=== PATIENT | female | born 1950 | race Caucasian/White ===

== ENCOUNTER → 2016-12-18 | Day surgery (SDC) | payer MEDICARE, MEDICAID ==
[~2016-12-18] VITALS: Ht 154.9 cm; Wt 54.4 kg
[~2016-12-18] MED LIST: /ADVA50050; /TIOT18INH; ACET65TA; ACETAMINOPHEN 325 MG TAB PO PRN; ACETYLCHOLINE OPHTH SOLN 1% 2ML As Ordered ONE; ACETYLCHOLINE OPHTH SOLN 1% 2ML XX ONE; ADV500INH INH; ALBU17IN INH; ALBU83IN; ATARAX; ATRO0.06; BSS with VANC/TOB/EPI for EYE CASES IR ONE; CEFUROXIME 1MG/0.1ML INTRACAMERAL INJ As Ordered ONE; CEFUROXIME 1MG/0.1ML INTRACAMERAL INJ ICAM ONE; CYCLOPENTOLATE 2% OPHTH SOLN As Ordered ONE; CYCLOPENTOLATE 2% OPHTH SOLN OD ONE; DIOV160T5; DULO30CA PO; HEALON DUET (HEALON 10MG/ML 0.55ML & HEALON ENDOCOAT 30MG/ML 0.85ML) XX ONE; HYDR25TA8; IRBE300T10 PO; LIDOCAINE 1% SDV 5 ML VIAL As Ordered ONE; LIDOCAINE 1% SDV 5 ML VIAL XX ONE; LIDOCAINE 4% INJ 5 ML AMP OU ONE; MIDAZOLAM INJ 2 MG/2 ML VIAL (J2250) As Ordered ONE; OFLOSO OD; OFLOXACIN 0.3 % (OCUFLOX) OPTH SOL 5ML As Ordered ONE; OFLOXACIN 0.3 % (OCUFLOX) OPTH SOL 5ML OD ONE; OMEP40CA2 PO; PHENYLEPHRINE 2.5% OPHTH SOL 2ML As Ordered ONE; PHENYLEPHRINE 2.5% OPHTH SOL 2ML OD ONE; POVIDONE-IODINE 5% OPHTH PREP SOL 30ML As Ordered ONE; PRED10TA PO; PRED1SUS OD; PRED20TA; PROPARACAINE 0.5% OPHTH SOL 15ML OD PRN; RANI150T PO; TIOT18INH INH; TOBRADEX OPHTH OINT 3.5 GM As Ordered ONE; TRAM50TA2; TRIMETHOBENZAMIDE 300 MG CAP PO PRN; TROPICAMIDE 1% OPHTH SOLN 2 ML As Ordered ONE; TROPICAMIDE 1% OPHTH SOLN 2 ML OD ONE; TYLE325T5 PO; VERA1TAB10 PO; fentaNYL 100 MCG/2 ML INJECTION (J3010) As Ordered ONE
[2016-12-18 10:45] VITALS: BP 159/86
--- NOTE | 2016-12-18 11:33 | RO ---
DATE OF PROCEDURE: 12/18/2016 PREPROCEDURE DIAGNOSIS: Age-related nuclear cataract and posterior subcapsular cataract, right eye. POSTPROCEDURE DIAGNOSIS: Age-related nuclear cataract and posterior subcapsular cataract, right eye. PROCEDURE: Phacoemulsification with anterior chamber intraocular lens. SURGEON: Viji Kelsey MD BOOKKEEPING MACHINE MECHANIC: ANESTHESIA: Topical with sedation. DESCRIPTION OF PROCEDURE: The patient was prepped and draped in the usual fashion. A lid speculum was placed between the lids. The eye was fixated. A stab incision was made in anterior chamber. 1% non-preservative Lidocaine was instilled; then viscoelastic was instilled. The eye was refixated and a 2.5 mm keratome was used to make a clear corneal temporal limbal incision. Capsulorrhexis then begun with 30-gauge bent needle and carried out in circular fashion. Capsulorrhexis lens was hydrodissected. The phacoemulsification was introduced into the eye and as soon as phacoemulsification was begun, the patient suffered approximately a 300 degree zonular dehiscence and the lens hinged and sunk down. An anterior vitrectomy was performed. Viscoelastic was placed underneath the cataract and most of the cataract was removed with the phacoemulsification unit. There was a small amount of nuclear fragment retained that will be sent retina to remove at a later date. The wound was enlarged and a lens guide was placed across the anterior chamber after Miochol was instilled. The pupil rounded nicely. An anterior chamber lens was introduced through the incision and the lens guide removed. The placed into the sulcus. The pupil stayed round during this procedure so the lens was in excellent position. The wound was closed using three #10-0 Nylon sutures. Balanced salt and cefuroxime were instilled. The patient tolerated the procedure well and went to recovery room in stable condition. A patch and shield was also placed.
== END | disposition home or self-care (01) ==
LOC: M SDC 07:42
PROVIDERS: ATTEND Ophthalmology
DX: H25.041 Posterior subcapsular polar age-related cataract, right eye (principal); I10 Essential (primary) hypertension; K21.9 Gastro-esophageal reflux disease without esophagitis; M51.37 Other intervertebral disc degeneration, lumbosacral region; M48.05 Spinal stenosis, thoracolumbar region; R29.898 Other symptoms and signs involving the musculoskeletal system; G89.29 Other chronic pain; M81.0 Age-related osteoporosis without current pathological fracture; E55.9 Vitamin D deficiency, unspecified; R41.81 Age-related cognitive decline; G47.9 Sleep disorder, unspecified; F41.9 Anxiety disorder, unspecified; F32.9 Major depressive disorder, single episode, unspecified; R51 Headache; Z90.710 Acquired absence of both cervix and uterus; R06.2 Wheezing; J20.9 Acute bronchitis, unspecified; J44.1 Chronic obstructive pulmonary disease with (acute) exacerbation; R06.02 Shortness of breath; J01.90 Acute sinusitis, unspecified; Z88.1 Allergy status to other antibiotic agents; Z88.6 Allergy status to analgesic agent; Z88.8 Allergy status to other drugs, medicaments and biological substances; Z79.899 Other long term (current) drug therapy
CPT/HCPCS: 66984; J2250; J3010; V2630

== ENCOUNTER → 2017-03-05 | Day surgery (SDC) | payer MEDICARE, MEDICAID ==
[~2017-03-05] VITALS: Ht 154.9 cm; Wt 56.2 kg
[~2017-03-05] MED LIST changes: -ACETAMINOPHEN 325 MG TAB PO PRN; -ACETYLCHOLINE OPHTH SOLN 1% 2ML XX ONE; -BSS with VANC/TOB/EPI for EYE CASES IR ONE; -CEFUROXIME 1MG/0.1ML INTRACAMERAL INJ ICAM ONE; -CYCLOPENTOLATE 2% OPHTH SOLN As Ordered ONE; +HEALON DUET (HEALON 10MG/ML 0.55ML & HEALON ENDOCOAT 30MG/ML 0.85ML) As Ordered ONE; -HEALON DUET (HEALON 10MG/ML 0.55ML & HEALON ENDOCOAT 30MG/ML 0.85ML) XX ONE; -LIDOCAINE 1% SDV 5 ML VIAL XX ONE; -OFLOXACIN 0.3 % (OCUFLOX) OPTH SOL 5ML As Ordered ONE; -PHENYLEPHRINE 2.5% OPHTH SOL 2ML As Ordered ONE; -PROPARACAINE 0.5% OPHTH SOL 15ML OD PRN; -TRIMETHOBENZAMIDE 300 MG CAP PO PRN; -TROPICAMIDE 1% OPHTH SOLN 2 ML As Ordered ONE
--- NOTE | 2017-03-05 12:29 | RO ---
DATE OF PROCEDURE: 03/05/2017 PREPROCEDURE DIAGNOSIS: Malposition anterior chamber intraocular lens right eye. POSTPROCEDURE DIAGNOSIS: Malposition anterior chamber intraocular lens right eye. PROCEDURE: Reposition of anterior chamber intraocular lens right eye. SURGEON: Viji Kelsey MD INSURANCE LOSS CONTROL SURVEYOR: ANESTHESIA: Topical with sedation. DESCRIPTION OF PROCEDURE: The patient was brought to the OR, prepped and draped in the usual sterile fashion. A lid speculum was placed between the lids. The eye was fixated. A stab incision was made in this eye, and 1% non-preserved lidocaine was instilled. The three corneal sutures are removed that were previously there and a 2.4 mm keratome was used to make a clear corneal temporal limbal incision. The manipulation hook was used to reposition the nasal haptic and lens was in excellent position. Miochol was instilled to constrict the pupil. The wound was hydrated and then tissue adhesive was used to close the wound. The wound was water tight. TobraDex ointment was applied and patch placed. The patient tolerated the procedure well and went to the recovery room in stable condition.
[2017-03-05 13:10] VITALS: BP 167/86
== END | disposition home or self-care (01) ==
LOC: M SDC 10:19
PROVIDERS: ATTEND Ophthalmology
DX: T85.22XA Displacement of intraocular lens, initial encounter (principal); I10 Essential (primary) hypertension; K21.9 Gastro-esophageal reflux disease without esophagitis; R23.3 Spontaneous ecchymoses; M15.0 Primary generalized (osteo)arthritis; M54.2 Cervicalgia; F41.9 Anxiety disorder, unspecified; F32.9 Major depressive disorder, single episode, unspecified; R51 Headache; J44.1 Chronic obstructive pulmonary disease with (acute) exacerbation; R06.83 Snoring; G47.33 Obstructive sleep apnea (adult) (pediatric); M51.37 Other intervertebral disc degeneration, lumbosacral region; M48.06 Spinal stenosis, lumbar region; E55.9 Vitamin D deficiency, unspecified; H25.23 Age-related cataract, morgagnian type, bilateral; G89.29 Other chronic pain; Z88.1 Allergy status to other antibiotic agents; Z88.2 Allergy status to sulfonamides; Z88.6 Allergy status to analgesic agent; Z79.899 Other long term (current) drug therapy; Z90.710 Acquired absence of both cervix and uterus
CPT/HCPCS: 66825; J2250; J3010

== ENCOUNTER 2017-04-10 10:25 | Inpatient (IN) | payer MEDICARE, MEDICAID ==
[2017-04-10] VITALS (31 sets, daily range): BP systolic 71–108; BP diastolic 51–62
[~2017-04-10] VITALS: Ht 157.5 cm; Wt 66.1 kg
[~2017-04-10 10:25] MED LIST changes: -ACETYLCHOLINE OPHTH SOLN 1% 2ML As Ordered ONE; -CEFUROXIME 1MG/0.1ML INTRACAMERAL INJ As Ordered ONE; -CYCLOPENTOLATE 2% OPHTH SOLN OD ONE; +DULoxetine 30 MG CAP (CYMBALTA) PO SCH; -HEALON DUET (HEALON 10MG/ML 0.55ML & HEALON ENDOCOAT 30MG/ML 0.85ML) As Ordered ONE; -LIDOCAINE 1% SDV 5 ML VIAL As Ordered ONE; -LIDOCAINE 4% INJ 5 ML AMP OU ONE; -MIDAZOLAM INJ 2 MG/2 ML VIAL (J2250) As Ordered ONE; -OFLOXACIN 0.3 % (OCUFLOX) OPTH SOL 5ML OD ONE; +OMEPRAZOLE 20 MG CAP PO SCH; -PHENYLEPHRINE 2.5% OPHTH SOL 2ML OD ONE; -POVIDONE-IODINE 5% OPHTH PREP SOL 30ML As Ordered ONE; -TOBRADEX OPHTH OINT 3.5 GM As Ordered ONE; -TROPICAMIDE 1% OPHTH SOLN 2 ML OD ONE; -fentaNYL 100 MCG/2 ML INJECTION (J3010) As Ordered ONE; +predniSONE 10 MG TAB PO SCH
[2017-04-10] MEDS ORDERED: VITA400T15 PO (10:45)
[2017-04-10] MEDS ORDERED: NS 1,000 ML IV ONE ×3 (10:45→14:15)
--- NOTE | 2017-04-10 11:05 | REP ---
AP PORTABLE CHEST: 04/10/2017 COMPARISON: 02/05/2016, 07/30/2015. CLINICAL HISTORY: Dyspnea and cough. FINDINGS: This portable chest at 10:49 AM shows the lungs hyperinflated, similar to previous studies consistent with COPD. There is apical pleural scarring bilaterally. Some basilar and mid lung zone fibrosis, bullous emphysematous changes mid and upper lung zones noted. There is no effusion or definite acute infiltrate. Heart is not grossly enlarged. There is pulmonary hypertension, likely on the basis of COPD. There is a tortuous ectatic aorta without change. Airway intact. No definite aortic aneurysm. Bones grossly intact. There is no free air under the diaphragm. IMPRESSION: 1. COPD with bullous emphysematous changes, pulmonary artery hypertension, apical pleuroparenchymal scarring, basilar fibrosis with hyperinflation and no acute infiltrate. 2. Tortuous ectatic aorta with some calcifications at the arch but no gross aneurysm or change. 3. No cardiomegaly, edema or effusion. Signed by Vinny Block MD 04/10/2017 02:15 P
[2017-04-10] MEDS ORDERED: PANTOPRAZOLE 40MG INJ (PROTONIX) (C9113) IV ONE (11:15)
[2017-04-10 11:19] LABS: INR 1.15
[2017-04-10 11:29] LABS: ALBUMIN 2.4 GM/DL (3.2-5.2); ALBUMIN/GLOBULIN RATIO 0.69 (1.00-1.93); BILIRUBIN,DIRECT 0.2 MG/DL (0.0-0.2); BILIRUBIN,TOTAL 0.6 MG/DL (0.2-1.0); CALCIUM LEVEL 8.2 MG/DL (8.8-10.2); CREATININE FOR GFR 2.5 MG/DL (0.55-1.02); GLOMERULAR FILTRATION RATE 20.4 (>45); POTASSIUM SERUM 3.9 MEQ/L (3.5-5.1); TOTAL PROTEIN 5.9 GM/DL (6.4-8.2)
[2017-04-10 11:37] LABS: ABG BASE EXCESS -4.8 (-2.0-2.0); ABG HCO3 20.3 MEQ/L (22.0-26.0); ABG PARTIAL PRESSURE CO2 37.4 mmHg (35.0-45.0); ABG PARTIAL PRESSURE O2 175.5 mmHg (75.0-100.0); ABG STANDARD HCO3 20.6 MEQ/L (22.0-26.0); ABG TOTAL CO2 21.4 MEQ/L (23.0-31.0); ABG pH (ARTERIAL) 7.352 UNITS (7.350-7.450)
[2017-04-10 11:41] LABS: MEAN CORPUSCULAR HEMOGLOBIN 30.2 pg (27.0-33.0); MEAN CORPUSCULAR VOLUME 91.6 fl (80.0-96.0); PLATELET COUNT, AUTOMATED 208 k/mm3 (150-450); RED CELL DISTRIBUTION WIDTH 12.6 % (11.5-14.5); WHITE BLOOD COUNT 17.2 K/mm3 (4.0-10.0)
[2017-04-10] MEDS ORDERED: DRIS50002 PO (11:44)
[2017-04-10] MEDS ORDERED: TOBR3OPD OD (11:44)
[2017-04-10] MEDS ORDERED: VERA120T6 PO (11:44)
[2017-04-10] MEDS ORDERED: PROA1AER INH (11:44)
[2017-04-10] MEDS ORDERED: KETO5OPD OD (11:44)
[2017-04-10] MEDS ORDERED: SUCRALFATE 1 GM TAB PO ONE (11:45)
[2017-04-10] MEDS ORDERED: FOSA70TA PO (11:48)
[2017-04-10] MEDS ORDERED: PIPERACILLIN/TAZOBACTAM SOD 2.25 GM in D5W MINI-BAG PLUS 50 ML IV ONE (12:15)
[2017-04-10 12:17] LABS: BANDS 7 % (< 11)
--- NOTE | 2017-04-10 12:42 | REP ---
Clinical: Abdominal pain. Findings: Moderate left-sided perinephric and periureteral stranding along with edematous enlargement of the kidney and mild hydronephrosis and proximal hydroureter is secondary to obstruction of the proximal ureter by a 8 mm calculus. The right kidney demonstrates mild chronic perinephric stranding without hydronephrosis or nephrolithiasis. Bladder demonstrates small amount of nondependent gas likely related to prior Patterson catheterization. Gallbladder is significantly distended with gallstones and no pericholecystic fluid or wall thickening to suggest acute cholecystitis. Peripancreatic stranding may be secondary to the above-mentioned acute obstructive uropathy however associated pancreatitis cannot definitively be excluded. Bilateral adrenal glands are normal. The enteric system is without obstruction or acute inflammatory process. Colonic diverticula noted without acute diverticulitis. Normal terminal ileum identified in the right lower quadrant. No significant ascites. No free air. No obvious adenopathy. Atherosclerotic changes to the vasculature noted without aneurysm. Musculoskeletal structures demonstrate degenerative changes. Lung bases demonstrate chronic bronchiectasis, mild/moderate fibrosis and interstitial changes. Impression: 1. Acute left-sided obstructive uropathy with a mm calculus obstructing the proximal left ureter. Inflammatory stranding involves much of the left upper retroperitoneal region including the pancreas and pancreatitis cannot be excluded. 2. Distended gallbladder with multiple gallstones but no CT evidence for acute cholecystitis. 3. Colonic diverticulosis without acute diverticulitis. 4. Lung bases demonstrate bronchiectasis with moderate fibrosis and chronic interstitial changes. Signed by Sandip Garza MD 04/10/2017 12:33 P
--- NOTE | 2017-04-10 12:54 | REP ---
CT of the chest: Studies requested without IV, at rest. Comparison 06/19/2011. There is no pneumothorax, hemothorax or pulmonary contusion. There is no mediastinal hematoma or mass. There is chronic pleuroparenchymal scarring in the lung apices, unchanged. There is a 6 mm nodule left upper lobe on image 27, unchanged. There is a 7 ml nodule in the superior segment of the left lower lobe on image 37. This measured 10 mm previously. There is a 6 mm lung nodule in the superior segment left lower lobe on image 46. This is unchanged. There is no mediastinal adenopathy. No axillary adenopathy. In the absence of IV contrast study is insensitive for hilar adenopathy. Impression: There are stable lung nodules as described. There are no infiltrates, effusions or masses. No pneumothorax or hemothorax. No adenopathy or mass. There is grade 1 compression deformity of the approximate T9 vertebral body. Signed by Eddie London MD 04/10/2017 12:45 P
[2017-04-10] MEDS ORDERED: MORPHINE 4 MG/ML 1ML SYRINGE IV ONE (13:00)
[2017-04-10] MEDS ORDERED: ONDANSETRON 4MG/2ML VIAL (J2405) IV ONE (13:00)
[2017-04-10 14:59] LABS: MEAN CORPUSCULAR HEMOGLOBIN 29.8 pg (27.0-33.0); MEAN CORPUSCULAR HGB CONC 32.6 g/dl (32.0-36.5); MEAN CORPUSCULAR VOLUME 91.3 fl (80.0-96.0); RED CELL DISTRIBUTION WIDTH 12.7 % (11.5-14.5); WHITE BLOOD COUNT 17.2 K/mm3 (4.0-10.0)
[2017-04-10] MEDS ORDERED: NS 1,000 ML IV SCH (15:03)
[2017-04-10] MEDS ORDERED: ONDANSETRON 4MG/2ML VIAL (J2405) IV PRN (15:15)
[2017-04-10] MEDS ORDERED: ACETAMINOPHEN TAB 650MG DOSE (2X325MG) PO PRN (15:15)
[2017-04-10] MEDS ORDERED: ALBUTEROL 90 MCG/ACT 8GM HFA INHALER INH PRN (15:15)
[2017-04-10] MEDS ORDERED: BISACODYL 5 MG TAB PO PRN (15:15)
[2017-04-10] MEDS ORDERED: PERCOCET 5MG/325MG TAB PO PRN (15:15)
[2017-04-10] MEDS ORDERED: SODIUM CHLORIDE 0.9% 1000 ML IV ONE (15:30)
[2017-04-10] MEDS: LEVALBUTEROL 1.25 MG/0.5 ML CONCENTRATE NEB INH SCH ×2 (15:53→19:29)
[2017-04-10] MEDS: IPRATROPIUM 0.02% SOLN 0.5MG/2.5 ML NEB NEB SCH ×2 (16:00→19:29)
[2017-04-10] MEDS ORDERED: LevoFLOXacin IV 500 MG in APPROPRIATE DILUENT 1 EA IV ONE (17:00)
[2017-04-10] MEDS: NOREPINEPHRINE BITARTRATE 8 MG in D5W 500 ML IV SCH (17:11)
[2017-04-10] MEDS ORDERED: SODIUM CHLORIDE 0.9% INJ 10 ML SYR IV PRN (17:15)
[2017-04-10] MEDS ORDERED: SLF 3 ML SYR IV PRN (17:15)
[2017-04-10] MEDS ORDERED: ALBUTEROL SULFATE 2.5 MG/0.5 ML INH NEB SOLN NEB PRN (17:30)
[2017-04-10] MEDS ORDERED: ACETAMINOPHEN 650 MG SUPP PR PRN (17:30)
--- NOTE | 2017-04-10 17:36 | REP ---
Portable chest, 05:11 p.m., 04/10/2017, post central line placement: Comparisons are the portable chest performed earlier today and chest CT performed earlier today and PA and lateral chest of 02/05/2016. There is a left subclavian central venous catheter with the tip in the superior vena cava in satisfactory location. There is no pneumothorax or hemothorax. The lung coombs are clear. Cardiac size is normal. Impression: No acute cardiopulmonary findings. Signed by Eddie London MD 04/10/2017 05:27 P
[2017-04-10] MEDS: MORPHINE 2 MG/ML 1ML SYRINGE IV PRN ×2 (18:32→20:26)
[2017-04-10] MEDS: HYDROCORTISONE 100 MG/2 ML VIAL (J1720) IV SCH (18:32)
[2017-04-10] MEDS: KETOROLAC 0.5% OPHTH SOLN OD SCH ×2 (18:50→22:16)
[2017-04-10] MEDS: TOBRAMYCIN 0.3% OPHTH SOLN 5 ML OD SCH ×2 (18:50→22:16)
[2017-04-10] MEDS: IPRATROPIUM 0.5MG/ALBUTEROL 2.5MG INH SOL UD 3ML (DUONEB)(J7620) NEB SCH (20:00)
[2017-04-10] MEDS: PIPERACILLIN/TAZOBACTAM SOD 3.375 GM in D5W MINI-BAG PLUS 50 ML IV SCH (20:24)
[2017-04-10] MEDS ORDERED: FAMOTIDINE 20 MG TAB PO SCH (21:00)
[2017-04-10 21:05] LABS: ALBUMIN/GLOBULIN RATIO 0.87 (1.00-1.93); BILIRUBIN,TOTAL 0.8 MG/DL (0.2-1.0); CALCIUM LEVEL 6.3 MG/DL (8.8-10.2); CREATININE FOR GFR 2.76 MG/DL (0.55-1.02); GLOMERULAR FILTRATION RATE 18.2 (>45); POTASSIUM SERUM 5.1 MEQ/L (3.5-5.1); TOTAL PROTEIN 4.3 GM/DL (6.4-8.2)
[2017-04-10] MEDS ORDERED: MORPHINE 4 MG/ML 1ML SYRINGE IV PRN (21:15)
[2017-04-10] MEDS: SODIUM CHLORIDE 0.9% INJ 10 ML SYR IV SCH (22:17)
[2017-04-10] MEDS: CHLORHEXIDINE GLUCONATE 0.12 % 15ML UDC (PERIDEX ORAL RINSE) MT SCH (22:17)
[2017-04-10] MEDS: SLF 3 ML SYR IV SCH (22:18)
[2017-04-10] MEDS: NS 1,000 ML IV SCH (22:18)
--- NOTE | 2017-04-10 22:30 | HPE ---
DATE OF ADMISSION: 04/10/2017 PRIMARY CARE PHYSICIAN: Dr. Gurrola PAINT ROLLER ASSEMBLER: Dr. Frey NEWS REPORTER: Dr. Kelsey CODE STATUS: Full code. CHIEF COMPLAINT: Bilateral lower abdominal pain, as well as lower back pain. HISTORY OF PRESENT ILLNESS: Ms. Islas is a 66-year-old female with multiple past medical history who presented to emergency room (ER) due to experiencing severe back and abdominal pain bilaterally. Patient expressed that the pain started yesterday. At first it was 4/5 and it started in the morning; however, it has gradually increased. Patient also expressed that yesterday after pain started, she became nauseated, and she had one episode of vomiting; however, patient denies seeing blood in her vomit, mostly undigested food. Patient expressed that she did not have anything to eat for lunch, and for dinner patient had a sandwich. Patient expressed that she felt warm; however, patient did not take her temperature and does not know if she had a fever; however, patient has chills. Patient also experienced night sweats, and this morning patient woke up with severe abdominal and back pain. Patient had another episode of vomiting. Patient had one episode of bowel movement yesterday and one episode of bowel movement today; however, patient denies hematochezia or melena. Patient expressed that she was urinating yesterday and today without dysuria or hematuria, and she did not notice any increased frequency of her urination. Patient expressed that she tries to keep herself hydrated; however, she was more nauseated today compared to yesterday. Patient denies loss of consciousness; however, patient had lightheadedness, dizziness, and headache today. Patient denies seizure-type activity. Patient is sexually active; however, her last sexual activity was 2 weeks ago. ALLERGIES: 1. ERYTHROMYCIN. 2. IBUPROFEN. 3. LISINOPRIL. 4. NONSTEROIDAL ANTI-INFLAMMATORY DRUGS (NSAIDS). 5. PSEUDOEPHEDRINE. 6. SULFA ANTIBIOTICS. PAST MEDICAL HISTORY: 1. Emphysema. 2. Arthritis. 3. Chronic obstructive pulmonary disease (COPD); however, patient does not remember how many liters of oxygen she is on; however, she uses oxygen 24 hours a day. 4. Hypertension. 5. Migraine headaches. PAST SURGICAL HISTORY: 1. Partial hysterectomy. 2. Dilatation and curettage (D and C). 3. section. 4. Appendectomy. 5 Hemorrhoid banding and removal. HOME MEDICATIONS: - Tylenol 65 mg by mouth every 4 hours as needed pain - albuterol sulfate/ProAir HFA two puff inhalation every 4 hours as needed - Fosamax 70 mg by mouth every week on Mondays - Cymbalta 30 mg by mouth daily - irbesartan 300 mg by mouth daily - ketorolac one drop right eye four times a day - omeprazole 40 mg by mouth daily - prednisone 1 mg by mouth daily - ranitidine one tablet by mouth twice a day - Advair Diskus one puff inhaled twice a day - Spiriva HandiHaler one capsule inhaled daily - tobramycin one drop right eye four times a day - verapamil 120 mg by mouth daily - Drisdol 50,000 units by mouth monthly SOCIAL HISTORY: Patient lives alone; however, patient's daughter (Rosina), phone number , is visiting her. Patient has three daughters who are healthy. Patient has not drank for the past 30 years; however, before that patient was drinking occasionally. Patient stopped smoking 14 years ago; however , before that patient started smoking at age 14, about a pack a day. Patient denies illicit drug use. Patient has not traveled outside of the [place]. Patient does not have any pets. FAMILY HISTORY: Patient has two brothers. One brother due to heart attack. Patient has one sister who due to heart attack. Patient's father due to old age. Patient's mother due to emphysema. She was a smoker. REVIEW OF SYSTEMS: GENERAL: Patient is not sure if she has fever; however, patient felt warm. Patient had chills and night sweats. Patient denies weight loss. HEENT: Patient denies acute vision or hearing changes. Patient denies problem with chewing food or sinusitis. NECK: Patient denies loss of range of motion of her neck. HEART: Patient denies palpitations, racing or skipping heartbeat or chest pain. LUNGS: Patient expressed that she has chronic cough with no production of sputum , shortness of breath, and uses oxygen; however, patient does not remember how many liters of oxygen she is on. Patient is also using breathing treatment. ABDOMEN: Since yesterday, patient has abdominal pain. Today her pain has increased to 10/10, mostly in the lower abdominal quadrants bilaterally. Patient has been experiencing nausea and two episodes of vomiting, one yesterday, one today; however, patient denies emesis, hemoptysis, melena, or hematochezia. Patient denies diarrhea or constipation. NEUROLOGIC: Patient denies history of transient ischemic attack (TIA), cerebrovascular accident (CVA), or seizure-type activities. PHYSICAL EXAMINATION: Pulse 136, respiratory rate 24, blood pressure 128/81, pulse oximetry 98 on 4 liters nasal cannula. GENERAL APPEARANCE: Patient was lying in bed in no acute distress. Patient was awake, alert, and oriented to time, place, and person. HEENT: Normocephalic, atraumatic. Pupils are equal and reactive to light. Oral mucosa is moist. NECK: Soft, supple. No lymphadenopathy. No thyromegaly. No jugular venous distention (JVD). HEART: Tachycardic. Normal S1, S2. ABDOMEN: Soft, tender to palpation mostly on the lower abdominal quadrants. No guarding. Positive bowel sounds in all quadrants. BACK: Patient has tenderness to palpation on lower back, left more than right. LUNGS: Patient has wheezing both with inhale and exhale as well as scattered rhonchi at the base of the lungs. NEUROLOGIC: Cranial nerves II-XII were intact. No focal deficiencies. EXTREMITIES: No lower extremity edema. +2 pulses in both upper and lower extremities. Patient has decreased range of motion in lower extremities. LABORATORY DATA: White blood cells 17.2, red blood cells 4.4, hemoglobin 13.3, hematocrit 40.3, MCV 91.6, MCH 30.2, MCHC 33, RDW 12.6, platelet count 208, neutrophil percentage 78, band neutrophils 7, leukocytes 6, monocytes 8, atypical lymphocytes 1, platelet estimate normal, red blood cell morphology normal. Sodium 134, potassium 3.9, chloride 97, carbon dioxide 22, anion gap 15, BUN 19, creatinine 2.5, glomerular filtration rate 20.4, fasting glucose 89, calcium 8.2 , total bilirubin 0.6, direct bilirubin 0.2, AST 56, ALT 40, alkaline phosphatase 141. Total creatine kinase 146, CK-MB 1.5, CK-MB relative index 1.02, troponin I 0.2 . BNP 531. Total protein 5.9, albumin 2.4. Lipase 64. TSH 6.28. Lactic acid 7.2. IMAGING STUDIES: Chest x-ray which indicated COPD with bullous emphysematous changes, pulmonary artery hypertension, apical pleuroparenchymal scarring, basilar fibrosis with hyperinflation and no acute infiltrate. Tortuous ectatic aorta with some calcifications at the arch but no gross aneurysm or change. No cardiomegaly, edema or effusion. Chest CT which shows stable lung nodules. There are no infiltrates, effusions or masses. No pneumothorax or hemothorax. No adenopathy or mass. There is a grade 1 compression deformity of the approximate T9 vertebral body. CT of abdomen and pelvis without contrast, which indicated acute left-sided obstructive uropathy with an 8 mm calculus obstructing the proximal left ureter. Inflammatory stranding involving much of the left upper retroperitoneal region, including the pancreas and pancreatitis cannot be excluded. Distended gallbladder with multiple gallstones but no CT evidence for acute cholecystitis. Colonic diverticulosis without acute diverticulitis. Lung bases demonstrate bronchiectasis with moderate fibrosis and chronic interstitial changes. ASSESSMENT AND PLAN: 1. Sepsis, qSOFA indicating patient has a high risk for sepsis. We have ordered blood cultures as well as urine culture and results are pending at this time. Patient has received 3 liters of normal saline bolus. We will administer another liter of NS bolus If we cannot control the blood pressure, patient may be required to have central line and use pressors. We will continue to monitor patient for any abnormal symptoms. 2. Obstructive uropathy. CT of abdomen and pelvis without contrast, which was done at the emergency room (ER), indicated that patient has obstruction of the proximal ureter by the [address] Melara has been consulted. At this moment, we will make the patient nothing by mouth. Patient is on intravenous (IV ) fluid, however patient is a stable at this time for procedure due to her blood pressure secondary to sepsis. 3. Chronic obstructive pulmonary disease (COPD). We will continue on breathing treatment, and we will continue patient on the home dosage of prednisone with oxygen saturation of 88-92%. 4. Hypertension. This is a chronic issue; however, at this time, due to sepsis , patient has hypotension. Patient is on blood pressure medications at home, including verapamil 120 mg by mouth daily and irbesartan; however, we will hold these medications at this time. 5. Acute kidney injury. This is possibly caused by prerenal azotemia (sepsis) versus post azotemia secondary to obstructive nephrolithiasis. At this point patient is IV fluid. Patient also is on Zosyn. Patient's urine culture is pending at this time. We will continue to monitor patient for any abnormal symptoms. 6. Migraine headache. Patient is stable at this time. 7. Gastroesophageal reflux disease (GERD). Patient is on Protonix. Also patient is on Pepcid 20 mg twice a day by mouth. 8. Arthritis and chronic pain. Patient is on Cymbalta 30 mg by mouth daily. 9. Deep vein thrombosis (DVT) prophylaxis. Due to the procedure, I have started patient on thromboembolic deterrents (TEDs) and sequentials. My preceptor for this patient encounter was Dr. Jen Andrade. The preceptor was physically present in the building during the encounter and was fully available as needed. All aspects of the patient interview, examination, medical decision making process, and medical care plan development were reviewed and approved by the preceptor. The preceptor is aware and concurs with the plan as stated in the body of this note and will attest to such by his/her co-signature. edited: 04/10/2017 [id number] kb MTDD
[2017-04-11] VITALS (78 sets, daily range): BP systolic 58–149; BP diastolic 49–93; O2SAT 96
[2017-04-11] MEDS: ADVAIR DISKUS 500/50 INH PWD INH SCH ×2 (01:03→08:21)
[2017-04-11] MEDS: HYDROCORTISONE 100 MG/2 ML VIAL (J1720) IV SCH ×3 (01:38→17:45)
[2017-04-11] MEDS: IPRATROPIUM 0.5MG/ALBUTEROL 2.5MG INH SOL UD 3ML (DUONEB)(J7620) NEB SCH ×4 (02:00→20:02)
[2017-04-11] MEDS: LEVALBUTEROL 1.25 MG/0.5 ML CONCENTRATE NEB INH SCH ×3 (02:00→14:00)
[2017-04-11] MEDS: NOREPINEPHRINE BITARTRATE 8 MG in D5W 500 ML IV SCH ×3 (03:51→23:26)
[2017-04-11] MEDS: PIPERACILLIN/TAZOBACTAM SOD 3.375 GM in D5W MINI-BAG PLUS 50 ML IV SCH ×3 (05:54→21:31)
[2017-04-11] MEDS: SODIUM CHLORIDE 0.9% INJ 10 ML SYR IV SCH ×3 (05:55→21:32)
[2017-04-11] MEDS: SLF 3 ML SYR IV SCH ×3 (05:55→21:32)
[2017-04-11 06:22] LABS: MEAN CORPUSCULAR HEMOGLOBIN 29.7 pg (27.0-33.0); MEAN CORPUSCULAR VOLUME 95.9 fl (80.0-96.0); PLATELET COUNT, AUTOMATED 110 k/mm3 (150-450); WHITE BLOOD COUNT 17.6 K/mm3 (4.0-10.0)
--- NOTE | 2017-04-11 06:31 | RO ---
DATE OF PROCEDURE: 04/10/2017 PREPROCEDURE DIAGNOSES: Hypotension. Need for vascular access and pressors. POSTPROCEDURE DIAGNOSES: Hypotension. Need for vascular access and pressors. PROCEDURE: Insertion of left subclavian central line. SURGEON: Dr. Paulino Pritchett. FAMILY MEDICINE CHAIR: ANESTHESIA: ESTIMATED BLOOD LOSS: PROCEDURE: Patient's left infraclavicular fossa was prepped and draped in the usual sterile fashion. It was infiltrated with 1% Xylocaine and the subclavian vein was found on the second pass. Wire was placed without difficulty with production of PVCs. Tract was dilated and a triple lumen catheter was placed by Seldinger technique. Ports were aspirated and flushed and the catheter was secured to the chest wall with two #3-0 silk sutures. Patient tolerated the procedure well and chest x-ray is pending.
[2017-04-11 06:49] LABS: ALBUMIN 1.9 GM/DL (3.2-5.2); ALBUMIN/GLOBULIN RATIO 0.76 (1.00-1.93); CREATININE FOR GFR 3.26 MG/DL (0.55-1.02); MAGNESIUM LEVEL 1.6 MG/DL (1.8-2.4); TOTAL PROTEIN 4.4 GM/DL (6.4-8.2)
[2017-04-11 06:55] LABS: POTASSIUM SERUM 5.2 MEQ/L (3.5-5.1)
[2017-04-11 07:06] LABS: BANDS 11 % (< 11)
[2017-04-11 07:08] LABS: TOXIC VACUOLATION 1+
[2017-04-11 07:09] LABS: CRENATED RBC 1+
[2017-04-11] MEDS: IPRATROPIUM 0.02% SOLN 0.5MG/2.5 ML NEB NEB SCH ×2 (08:00→12:00)
[2017-04-11] MEDS ORDERED: MORPHINE 2 MG/ML 1ML SYRINGE IV ONE (08:15)
[2017-04-11] MEDS: LevoFLOXacin IV 500 MG in APPROPRIATE DILUENT 1 EA IV ONE ×2 (08:29→08:40)
[2017-04-11] MEDS: PANTOPRAZOLE 40MG INJ (PROTONIX) (C9113) IV SCH (08:29)
[2017-04-11] MEDS: MAG SULF 1GM/100ML (MAG RUN) 1 GM in APPROPRIATE DILUENT 1 EA IV SCH ×2 (08:38→13:02)
[2017-04-11] MEDS: CHLORHEXIDINE GLUCONATE 0.12 % 15ML UDC (PERIDEX ORAL RINSE) MT SCH ×2 (08:44→21:31)
[2017-04-11] MEDS: TOBRAMYCIN 0.3% OPHTH SOLN 5 ML OD SCH ×4 (08:44→21:31)
[2017-04-11] MEDS: KETOROLAC 0.5% OPHTH SOLN OD SCH ×4 (08:44→21:31)
[2017-04-11] MEDS ORDERED: TIOTROPIUM INHALER/CAPSULE (SPIRIVA) INH SCH (09:00)
[2017-04-11] MEDS ORDERED: ISOVUE-300 61% 50ML VIAL (Q9967) As Ordered ONE (09:15)
[2017-04-11] MEDS ORDERED: LIDOCAINE 2% MDV 20 ML VIAL As Ordered ONE (09:35)
[2017-04-11] MEDS ORDERED: fentaNYL 100 MCG/2 ML INJECTION (J3010) As Ordered ONE (09:43)
[2017-04-11] MEDS ORDERED: SODIUM CHLORIDE 0.9% 1000 ML IV ONE ×2 (10:45→20:00)
--- NOTE | 2017-04-11 11:34 | ECGEPIP ---
Stationary ECG Study [facility] - ED Test Date: 2017-04-10 Pat Name: SANGEETHA BRYAN Department: Room: - Gender: F Franchise Sales Representative: yvonne : 1950 Requested By: Marsha Pereira Order Number: [id number] Reading MD: Marsha Pereira Measurements Intervals [place] Rate: 135 P: 77 [place]: 145 QRS: 79 QRSD: 73 T: 79 QT: 318 QTc: 477 Interpretive Statements SINUS TACHYCARDIA ANTEROSEPTAL MYOCARDIAL INFARCTION, OF INDETERMINATE AGE NSTTW ABNORMALITY NO PRIOR FOR COMPARISON Electronically Signed On 04-11-2017 11:33:59 EDT by Marsha Pereira
--- NOTE | 2017-04-11 11:38 | ECGEPIP ---
Stationary ECG Study [facility] - ED Test Date: 2017-04-10 Pat Name: SANGEETHA BRYAN Department: Room: - Gender: F Air Conditioning Specialist: rn : 1950 Requested By: Marsha Pereira Order Number: [id number] Reading MD: Marsha Pereira Measurements Intervals [place] Rate: 127 P: 76 ND: 137 QRS: 82 QRSD: 82 T: 79 QT: 335 QTc: 487 Interpretive Statements SINUS TACHYCARDIA WITH OCCASIONAL SUPRAVENTRICULAR PREMATURE COMPLEXES ABNORMAL RHYTHM ECG DELAYED R PROGRESSION LOW VOLTAGE LIMB DECREASED RATE 10:36 Electronically Signed On 04-11-2017 11:38:03 EDT by Marsha Pereira
[2017-04-11] MEDS ORDERED: VASOPRESSIN INJ 20 UNITS/ML VIAL As Ordered ONE (11:44)
[2017-04-11] MEDS ORDERED: VASOPRESSIN INJ 20 UNITS in NS 500 ML IV SCH ×2 (11:45→12:00)
[2017-04-11] MEDS ORDERED: MIDAZOLAM INJ 2 MG/2 ML VIAL (J2250) IV ONE ×2 (11:45→14:45)
[2017-04-11] MEDS ORDERED: NS 1,000 ML IV ONE (11:45)
--- NOTE | 2017-04-11 11:50 | REPKIM ---
CLINICAL HISTORY: Patient presents with obstructing left ureteral stone, hydronephrosis, hypotension on Levophed, sepsis, leukocytosis and elevated creatinine. The referring service has asked a nephrostomy catheter placement on the left. PROCEDURE: 1. Ultrasound of the left kidney 2. Nephrostomy urinary diversion tube placement INTERVENTIONALIST: Lico Almaguer MD MEDICATIONS: Local Lidocaine EBL: 10 mL CONTRAST: 5 mL Isovue 300 DEVICE USED: Nephrostomy Resolve catheter 8.5F Lot#[id number] Description of procedure: The risks, benefits, and alternatives of the procedure were discussed with the patients daughter. Ms Rosina Bender, and informed phone consent was obtained and witnessed. Patient received IV antibiotics. The patient was brought to the interventional radiology suite where a timeout procedure was performed. The patient was placed in the supine position with left side up. The left rhonda was prepped and draped in the usual sterile fashion. Ultrasound of the left kidney showed moderate hydronephrosis. Using ultrasound and fluoroscopic guidance, a 21-gauge Accustick needle was percutaneously introduced into the target calyx. Using this access, an Accustick catheter was introduced with its tip positioned in the renal pelvis. An 8.5-Qatari nephrostomy catheter was introduced over the guidewire. The guidewire was withdrawn and the distal end of the catheter was formed in the renal pelvis. Minimum amount of contrast was gently hand injected confirming satisfactory catheter positioning. This also showed obstruction of the proximal ureter secondary to ureteral stone. The nephrostomy drainage catheter was then secured to the skin with 2-0 suture and covered with a sterile dressing. The nephrostomy urinary diversion catheter was flushed and connected to a gravity bag. The patient tolerated the procedure well with no immediate complications. This procedure was performed using ultrasound and fluoroscopy. Dr. Almaguer was present. IMPRESSION: 1. Obstructing proximal left ureteral stone, hydronephrosis, elevated cr and sepsis. 2. Successful placement of 8.5-Qatari percutaneous nephrostomy urinary diversion tube on the left. Findings discussed via phone with Dr. Rivera at the completion of this study. Continue antibiotics and supportive care. cc: MD Cedric Orosco MD [facility]
[2017-04-11 11:53] LABS: ABG BASE EXCESS -26.7 (-2.0-2.0); ABG HCO3 7.2 MEQ/L (22.0-26.0); ABG PARTIAL PRESSURE CO2 46.5 mmHg (35.0-45.0); ABG PARTIAL PRESSURE O2 122.4 mmHg (75.0-100.0); ABG STANDARD HCO3 5.8 MEQ/L (22.0-26.0); ABG TOTAL CO2 8.6 MEQ/L (23.0-31.0)
[2017-04-11 11:55] LABS: ABG pH (ARTERIAL) 6.808 UNITS (7.350-7.450)
[2017-04-11] MEDS ORDERED: MIDAZOLAM INJ 2 MG/2 ML VIAL (J2250) As Ordered ONE (11:57)
[2017-04-11] MEDS ORDERED: SODIUM BICARBONATE 8.4% INJ 50 ML SYRINGE As Ordered ONE (11:59)
[2017-04-11] MEDS ORDERED: SODIUM BICARBONATE 8.4% INJ 50 ML SYRINGE IV STA ×3 (12:02→16:18)
--- NOTE | 2017-04-11 12:43 | REP ---
Portable chest: Single view. History: Post endotracheal tube placement. Comparison study: April 10, 2017 at 05:11 p.m. Findings: Endotracheal tube is seen in good position approximately 1 to 1-1/2 cm above the sukhjinder. A left subclavian line terminates in the expected location of the superior vena cava. There is no evidence of pneumothorax. The cardiomediastinal silhouette is unremarkable and unchanged. No acute infiltrate is seen. Impression: Endotracheal tube approximately 1-1/2 cm above the sukhjinder. No acute infiltrate seen. Signed by Rodolfo Smith MD 04/11/2017 03:34 P
[2017-04-11] MEDS ORDERED: MIDAZOLAM INJ 2 MG/2 ML VIAL (J2250) IV PRN (12:45)
[2017-04-11 12:47] LABS: ABG BASE EXCESS -23.3 (-2.0-2.0); ABG HCO3 7.5 MEQ/L (22.0-26.0); ABG PARTIAL PRESSURE CO2 33.8 mmHg (35.0-45.0); ABG PARTIAL PRESSURE O2 157.4 mmHg (75.0-100.0); ABG STANDARD HCO3 7.7 MEQ/L (22.0-26.0); ABG TOTAL CO2 8.5 MEQ/L (23.0-31.0)
[2017-04-11 12:50] LABS: ABG pH (ARTERIAL) 6.963 UNITS (7.350-7.450)
--- NOTE | 2017-04-11 12:56 | IPN ---
DATE: 04/11/2017 Please see resident note from today for full details. I assumed care of the patient at 7:00 a.m. this morning. Upon presentation to the patient's bedside, she was found to be on 10 mcg of Levophed after receiving 4 mg of IV morphine, lethargic with a MAP less than 65. I did initiate titration up of her Levophed to 15 mcg and I did speak with Dr. Melara. We discussed potential treatment options, taking the patient to operating room for double J stent placement on the left, versus my suggestion of percutaneous nephrostomy tube placement. Given the patient's hemodynamic instability, I thought local anesthesia and a less invasive procedure might be better tolerated for acute decompression. I did urgently contact Dr. Almaguer of interventional radiology who graciously presented to the bedside emergently to evaluate the patient. He did review the case and agree, and obtained consent for the procedure. The patient did receive a percutaneous nephrostomy tube on the left. Following the procedure, the patient returned to the medical intensive care unit where she was found to have worsening hypotension. She did receive 2 liters of normal saline bolus and her Levophed was titrated up to 20. She was already on stress dose steroids. In addition vasopressin was added. An arterial blood gas was checked and the patient was found to be acidotic with a pH of 6.8 and was less responsive. Dr. York was at the bedside and an emergent aed trainer consult was placed. The patient was intubated. Following this, she was noted to have an improvement in her blood pressure and as such vasopressin has been discontinued. I did call the patient's daughter Rosina and give her an update of the change in the patient's clinical status over the phone. She did present to the bedside where I was able to speak with her once again and answer all questions to her satisfaction. At this time, the patient's prognosis remains quite guarded. She remains a FULL CODE. We will cycle her labs in an attempt to support her as best possible allowing the antibiotics time to work.
[2017-04-11 15:48] LABS: MEAN CORPUSCULAR HEMOGLOBIN 30.3 pg (27.0-33.0); MEAN CORPUSCULAR HGB CONC 30.3 g/dl (32.0-36.5); MEAN CORPUSCULAR VOLUME 100.1 fl (80.0-96.0); RED CELL DISTRIBUTION WIDTH 12.8 % (11.5-14.5)
--- NOTE | 2017-04-11 15:58 | REP ---
Portable chest x-ray: Single view. History: Line placement. Comparison study April 11, 2017 at 12:17 p.m. Findings: EKG monitoring electrodes overlie the chest. Endotracheal tube remains in good position at the level of the transverse aorta. Previously noted left subclavian line terminates in the expected location of the superior vena cava. There is a new larger caliber right subclavian line which also has its tip in the expected location of the superior vena cava. There is no evidence of pneumothorax on either side. Heart is not enlarged. No focal infiltrate is seen. Interstitial markings are a little prominent in the bases. Signed by Rodolfo Smith MD 04/14/2017 08:33 A
[2017-04-11 16:05] LABS: ABG BASE EXCESS -25.2 (-2.0-2.0); ABG HCO3 6.3 MEQ/L (22.0-26.0); ABG PARTIAL PRESSURE CO2 31.1 mmHg (35.0-45.0); ABG PARTIAL PRESSURE O2 109.3 mmHg (75.0-100.0); ABG STANDARD HCO3 6.7 MEQ/L (22.0-26.0); ABG TOTAL CO2 7.3 MEQ/L (23.0-31.0)
[2017-04-11 16:08] LABS: ABG pH (ARTERIAL) 6.925 UNITS (7.350-7.450)
[2017-04-11] MEDS: CALCIUM GLUCONATE 1,000 MG in D5W MINI-BAG PLUS 100 ML IV SCH ×2 (16:25→17:45)
--- NOTE | 2017-04-11 16:30 | CCN ---
DATE: 04/11/2017 I was called to the intensive care unit to evaluate this patient regarding low blood pressure. A 66-year-old female admitted with abdominal pain, nausea, and vomiting yesterday. She was found to have an obstructing stone in her ureter. She was not felt to be stable enough to have surgery at that time and was admitted to the intensive care unit. Blood pressure continued to fall, and pressors were started. This morning the patient was taken to radiology for a nephrostomy tube placement. On return, her blood pressure dropped further despite fluid administration and maximal doses of Levophed, her respiratory status became unstable, and I was called. On my arrival, she is encephalopathic. Temperature 98, pulse 122, respirations 14 and irregular, blood pressure 55 with a Doppler. Vasopressin was immediately added at 0.1 mcg. HEENT: Oral mucosa is dry. HEART: Sounds were regular without appreciable murmur. Breath sounds diminished but clear. ABDOMEN: Soft. No bowel sounds. EXTREMITIES: Cold and mottled. A stat arterial blood gas showed a pH 6.8, pCO2 46, pO2 of 122. Intravenous (IV) bicarbonate was administered, and a blood pressure repeated at 80 systolic by Doppler. An endotracheal tube was placed and mechanical ventilation initiated. A chest x-ray showed the endotracheal tube to be in good position. There were no infiltrates on the x-ray. Right diaphragm was somewhat elevated. Formal report is pending. Blood pressure was repeated at this point, and the mean arterial pressure now is 70. Vasopressin was discontinued. An EKG was obtained. I see artifact but no significant ST-segment shifts. Formal report is pending. The primary problem requiring critical attention is acute respiratory failure. Will initiate formal mechanical ventilatory support settings and recheck an arterial blood gas. Severe sepsis with shock, urinary source. The patient has already been started on broad-spectrum antibiotics. Will continue fluid resuscitation to a central venous pressure (CVP) of approximately 16 and use pressors to maintain a mean arterial pressure of 65. Deep vein thrombosis (DVT) prophylaxis and ulcer prophylaxis will be addressed. The patient's family has been contacted by the hospitalist service and is en route to the hospital at this point. Her condition is critical. Prognosis is guarded. One hour and 43 minutes was spent in the provision of bedside critical care and coordination exclusive of any procedure time.
[2017-04-11] MEDS: NS 1,000 ML IV SCH (16:44)
[2017-04-11] MEDS: NS 1,000 ML IV ONE ×2 (16:45→18:52)
[2017-04-11 16:47] LABS: ALBUMIN 1.6 GM/DL (3.2-5.2); ALBUMIN/GLOBULIN RATIO 0.59 (1.00-1.93); BILIRUBIN,TOTAL 1.5 MG/DL (0.2-1.0); CALCIUM LEVEL 6.1 MG/DL (8.8-10.2); CREATININE FOR GFR 3.72 MG/DL (0.55-1.02); GLOMERULAR FILTRATION RATE 12.9 (>45); TOTAL PROTEIN 4.3 GM/DL (6.4-8.2)
[2017-04-11 16:58] LABS: PHOSPHORUS LEVEL 10.5 MG/DL (2.5-4.9)
[2017-04-11 19:13] LABS: ABG BASE EXCESS -22.3 (-2.0-2.0); ABG DEVICE MECHAN. VENT; ABG HCO3 8.7 MEQ/L (22.0-26.0); ABG PARTIAL PRESSURE CO2 38.2 mmHg (35.0-45.0); ABG STANDARD HCO3 8.6 MEQ/L (22.0-26.0); ABG TOTAL CO2 9.9 MEQ/L (23.0-31.0)
[2017-04-11 19:16] LABS: ABG pH (ARTERIAL) 6.975 UNITS (7.350-7.450)
[2017-04-11] MEDS ORDERED: DEXTROSE 50% 50 ML SYRINGE IV PRN (19:45)
[2017-04-11] MEDS ORDERED: GLUCAGON FOR INJ 1 MG VIAL (J1610) SC PRN (19:45)
[2017-04-11] MEDS ORDERED: GLUCOSE 4 GM CHEW TABLET PO PRN (19:45)
[2017-04-11] MEDS ORDERED: MORPHINE 2 MG/ML 1ML SYRINGE IV PRN (20:00)
[2017-04-11] MEDS: HumaLOG INSULIN (NovoLOG) PER UNIT SC SCH (20:25)
[2017-04-11 20:34] LABS: IONIZED CALCIUM 4.1 MG/DL (4.5-5.3)
[2017-04-11 20:45] LABS: PLTBLUE- EDTA FREE CALC 34 K/mm3 (172-450); PLTBLUE- EDTA FREE MACHINE 31 K/mm3 (172-450)
[2017-04-11 20:46] LABS: FIBRINOGEN 457 MG/DL (221-452)
[2017-04-11 20:49] LABS: REASON FOR REVIEW COMPREHENSIVE REVIEW
[2017-04-11 20:57] LABS: MAGNESIUM LEVEL 2.3 MG/DL (1.8-2.4); PHOSPHORUS LEVEL 7.5 MG/DL (2.5-4.9)
[2017-04-11 20:58] LABS: CALCIUM LEVEL 6.5 MG/DL (8.8-10.2); CREATININE FOR GFR 2.65 MG/DL (0.55-1.02); GLOMERULAR FILTRATION RATE 19.1 (>45)
[2017-04-11 20:59] LABS: POTASSIUM SERUM 5.2 MEQ/L (3.5-5.1)
[2017-04-11 21:05] LABS: ABG BASE EXCESS -23.2 (-2.0-2.0); ABG HCO3 7.6 MEQ/L (22.0-26.0); ABG PARTIAL PRESSURE CO2 33.7 mmHg (35.0-45.0); ABG PARTIAL PRESSURE O2 111.8 mmHg (75.0-100.0); ABG STANDARD HCO3 7.9 MEQ/L (22.0-26.0); ABG TOTAL CO2 8.6 MEQ/L (23.0-31.0)
[2017-04-11 21:07] LABS: ABG pH (ARTERIAL) 6.971 UNITS (7.350-7.450)
[2017-04-11 21:08] LABS: INR 5.76
[2017-04-11] MEDS ORDERED: DEXTROSE 50% 50 ML SYRINGE IV STA (22:14)
[2017-04-11] MEDS: D10W/0.45% SODIUM CHLORIDE 1,000 ML IV SCH (23:26)
[2017-04-12] VITALS (46 sets, daily range): BP systolic 66–156; BP diastolic 36–95; O2SAT 98–99
[2017-04-12] MEDS: IPRATROPIUM 0.5MG/ALBUTEROL 2.5MG INH SOL UD 3ML (DUONEB)(J7620) NEB SCH ×4 (01:20→20:00)
--- NOTE | 2017-04-12 01:33 | CR ---
DATE OF CONSULTATION: 04/11/2017 REQUESTING PHYSICIAN: Lawson Rivera MD. CONSULTING PHYSICIAN: Flavia Mckinley MD. REASON FOR CONSULTATION: Management of acute oliguric renal failure, metabolic acidosis in the setting of septic shock. CHIEF COMPLAINT: Patient presented to the emergency room yesterday with lower abdominal pain, nausea, vomiting. HISTORY OF PRESENT ILLNESS: Ms. Jenna Islas is a 66-year-old female with past medical history of emphysema, chronic obstructive pulmonary disease (COPD), hypertension and other comorbidities as mentioned below. She presented to the emergency room yesterday with pain lower abdomen and back pain, which is 4/5 in intensity, constant, associated with nausea, vomiting, chills and rigors. Patient was found to have leukocytosis on admission along with acute renal failure with a creatinine of 2.5 along with a lactate of 7.2. Further sepsis workup including imaging and CAT scan of the abdomen, pelvis showed patient had acute left-sided obstructive uropathy with about 8 mm stone in the left ureter. There was stranding in the left upper retroperitoneal region. Patient became hypotensive and unstable, so emergent left-sided nephrostomy was done by interventional radiology. After that, patient went into severe septic shock. Preliminary blood cultures came back positive for gram-negative rods. Patient was transferred to intensive care unit (ICU). She got intubated because of severe metabolic acidosis and respiratory distress. She was placed on pressors. Levophed was given, intravenous (IV) fluid boluses were started, and broad-spectrum IV antibiotics. Patient is oliguric since yesterday. She is in severe metabolic acidosis along with hyperkalemia. Nephrology service was called for further help in the management of septic shock, metabolic acidosis, and electrolyte abnormalities in the setting of acute renal failure and shock liver. Much of the history was obtained from medical records and from primary team. Patient is unable to provide any history because she is intubated; however, patient's daughter was present at the bedside to answer a few questions. PAST MEDICAL HISTORY: 1. COPD. 2. Arthritis. 3. Hypertension. 4. Migraine headaches. PAST SURGICAL HISTORY: 1. Status post partial hysterectomy. 2. Status post dilation and curettage (D and C) in the past. 3. Status post (C) section. 4. Status post appendectomy. 5. Status post hemorrhoid banding and removal in the past. ALLERGIES: Patient is allergic to ERYTHROMYCIN, IBUPROFEN, LISINOPRIL, NONSTEROIDAL ANTIINFLAMMATORY DRUGS (NSAIDS), PSEUDOEPHEDRINE, and SULFA DRUGS. HOME MEDICATIONS: Before arrival to the emergency room patient was on: - Tylenol - ProAir as needed - Fosamax 70 mg daily - Cymbalta 30 mg daily - irbesartan 300 mg by mouth daily - omeprazole 40 mg by mouth daily - prednisone - ranitidine one tablet twice a day - Advair - Spiriva - verapamil 120 mg by mouth daily - vitamin D 50,000 units once a month FAMILY HISTORY: No significant family history of end-stage renal disease requiring hemodialysis. The rest of the family history is noncontributory at this time in septic shock. SOCIAL HISTORY: Patient lives alone; however, her daughter is at the bedside at this time. There is no history of illicit drug abuse, alcohol abuse. There is past history of smoking and she quit about 14 years ago. REVIEW OF SYSTEMS: I was unable to do any reliable review of systems on this patient who is in septic shock and intubated at this time. PHYSICAL EXAMINATION: Vital signs: When I examined the patient in the afternoon, her temperature was 98.2 degrees Fahrenheit, blood pressure was 103/73, pulse was 112, respiratory rate of 21, saturating 99% on the vent with 40% FiO2. Head and neck exam: Pupils equally round and reactive to light. The patient is intubated at this time. Neck is supple. Patient has a triple-lumen catheter in the left subclavian. Cardiovascular: S1, S2, tachycardia. No murmur, rub or gallop. Respiratory: Chest is clear to auscultation bilaterally. Patient is intubated at this time. There are no rales or rhonchi. Abdomen: Soft, slightly distended, liver is palpable below the costal margin. There is no ascites. No other organomegaly. There are old abdominal surgical scars present. Genitourinary: Patient has a left-sided nephrostomy tube with about 10-15 mL of blood tinged urine in the left-sided nephrostomy. Patient also has a Patterson catheter and there is no urine in the Patterson catheter bag at this time. Extremities: No clubbing or cyanosis. Pulses are 2+. Central nervous system: Patient moves to painful stimuli and she was arousable on loud commands. Skin: No rashes or ulcers. Lymph nodes: No significant cervical, axillary or inguinal lymphadenopathy. LABORATORY REVIEW: CBC this morning showed WBC of 17.6, hemoglobin 12.2, platelets are 110. PT was 14.8, INR is 1.15. Urinalysis showed it was cloudy with negative nitrite, 1+ leukocyte esterase, 34 WBCs, 24 RBCs. ABG done in the afternoon showed a pH of 6.92, pCO2 31.1, pO2 109, bicarbonate is 6.3. Oxygen saturation is 96.5%. BMP showed a sodium of 135, potassium 5.2, chloride 104, bicarbonate 17, BUN 34, creatinine 3.2, glucose 110, lactic acid is 5.1, calcium 6, magnesium 1.6, AST 3186, ALT is 1556, alkaline phosphatase is 164, albumin is 1.9. Microbiology: Blood culture preliminary is growing gram-negative rods. IMAGING: A CAT scan of the abdomen and pelvis done yesterday showed acute left-sided obstructive uropathy with inflammatory stranding involving the left upper retroperitoneal region. A CAT scan of the chest done yesterday showed stable lung nodules. No infiltrates, effusions or masses. CURRENT INPATIENT MEDICATIONS: Patient's current inpatient medications include: - IV Levophed at 20 mcg - Levaquin 500 mg IV times one dose - normal saline IV boluses are being given - Zosyn 3.375 grams IV every 8 hours - Tylenol suppository - DuoNebs - hydrocortisone 50 mg IV every 8 hours - ketorolac eye drops - Versed 2 mg IV as needed for sedation - morphine IV as needed - Protonix 40 mg IV daily - Zofran 4 mg IV every 6 hours - sodium bicarbonate IV, 2 ampules were given for acidosis - tobramycin eye drops ASSESSMENT: 66-year-old female admitted to intensive care unit (ICU) with septic shock, multiorgan failure including shock liver, vent-dependent respiratory failure, and acute oliguric renal failure along with metabolic acidosis and hyperkalemia secondary to gram-negative michele bacteremia and left-sided obstructive uropathy status post left-sided nephrostomy tube placement. PLAN: 1. Septic shock secondary to gram-negative michele bacteremia. Patient is in ICU, currently on pressors. Continue Levophed. Try to maintain a mean arterial pressure (MAP) of above 65. Fluid boluses as needed. Try to maintain a CVP of around 8-12. Okay to give intravenous (IV) bicarbonate ampules until patient gets a line and we start continuous renal replacement therapy. 2. Acute oliguric renal failure. It is multifactorial secondary to left-sided obstruction, urosepsis, septic shock and hypotension, use of angiotensin-converting enzyme (PAMELLA) inhibitors at home prior to arrival. Patient is severely sick. She has metabolic acidosis as well. Patient will get a dialysis catheter and after that we shall start the patient on continuous venovenous hemodiafiltration (CVVHDF) to correct electrolyte abnormality and severe acidosis. We shall manage the electrolytes and acidosis with continuous renal replacement therapy. 3. Hyperkalemia. Hyperkalemia is secondary to acute renal failure and severe metabolic acidosis. Potassium will be managed with continuous renal replacement therapy (CRRT), fluid management. 4. Severe metabolic acidosis. It is secondary to a combination of lactic acidosis, septic shock and acute renal failure. Patient is in shock liver as well. She is not able to metabolize the lactate as well. Metabolic acidosis will be managed with continuous renal replacement therapy. 5. Gram-negative michele bacteremia. Continue the broad-spectrum coverage at this time. Patient was given a dose of Levaquin 500 mg IV. Continue the Zosyn, but I am going to change to Zosyn dose to 3.375 grams IV every 6 hours because we are starting CVVHDF. 6. Left-sided obstructive uropathy. Patient has an obstructing stone in the left proximal ureter. She cannot undergo any procedure at this time because of severe sickness and septic shock. She got the emergent left-sided nephrostomy tube. She is having very minimal output in the left-sided nephrostomy because of shock and acute renal failure. Continue the Patterson catheter now as well. Continue the IV antibiotics. 7. Hypocalcemia. Calcium will be managed according to CRRT electrolyte protocol. 8. Shock liver. Patient's liver function tests are abnormal at this time because of hypotension and shock liver. Liver function tests (LFTs) are expected to improve once we maintain a MAP of above 65. She will need aggressive supportive care while she recovers from multiorgan failure. Check international normalized ratio (INR) every 12 hours. She will need fresh frozen plasma (FFP) transfusion as needed if INR goes up. 9. Vent-dependent respiratory failure. Management is as per pulmonary service. Thank you for involving us in the care of this patient. We shall be happy to follow the patient along with you tomorrow morning. Plan of care was discussed with the hospitalist team, Dr. Lawson Rivera and with the legal file clerk, Dr. York along with the patient's registered nurse (RN) and patient's daughter at the bedside. Patient will get a temporary dialysis catheter placement with the help of Dr. York. I appreciate his help in the management of this critically ill patient. We shall be shortly starting CVVHDF in this patient once the catheter is placed. I spent more than an hour in the care of this patient in the ICU. KELLY
[2017-04-12] MEDS: HYDROCORTISONE 100 MG/2 ML VIAL (J1720) IV SCH ×3 (01:37→18:11)
[2017-04-12 02:35] LABS: IONIZED CALCIUM 2.9 MG/DL (4.5-5.3)
[2017-04-12 02:49] LABS: CREATININE FOR GFR 2.3 MG/DL (0.55-1.02); GLOMERULAR FILTRATION RATE 22.4 (>45)
[2017-04-12 02:50] LABS: MAGNESIUM LEVEL 1.8 MG/DL (1.8-2.4); PHOSPHORUS LEVEL 6.7 MG/DL (2.5-4.9)
[2017-04-12 02:56] LABS: POTASSIUM SERUM 5.2 MEQ/L (3.5-5.1)
[2017-04-12] MEDS: CALCIUM GLUCONATE 1,000 MG in D5W MINI-BAG PLUS 100 ML IV SCH ×4 (03:18→16:05)
[2017-04-12] MEDS: PIPERACILLIN/TAZOBACTAM SOD 3.375 GM in D5W MINI-BAG PLUS 50 ML IV SCH ×3 (03:18→14:37)
[2017-04-12] MEDS ORDERED: MAG SULF 1GM/100ML (MAG RUN) 1 GM in APPROPRIATE DILUENT 1 EA IV ONE (04:45)
[2017-04-12 04:52] LABS: MEAN CORPUSCULAR HEMOGLOBIN 30.3 pg (27.0-33.0); MEAN CORPUSCULAR HGB CONC 29.9 g/dl (32.0-36.5); MEAN CORPUSCULAR VOLUME 101.2 fl (80.0-96.0); RED CELL DISTRIBUTION WIDTH 12.9 % (11.5-14.5); WHITE BLOOD COUNT 17.4 K/mm3 (4.0-10.0)
[2017-04-12] MEDS: SODIUM CHLORIDE 0.9% INJ 10 ML SYR IV SCH ×2 (05:32→14:38)
[2017-04-12] MEDS: SLF 3 ML SYR IV SCH (05:33)
[2017-04-12 05:46] LABS: ABG BASE EXCESS -23.8 (-2.0-2.0); ABG HCO3 7.4 MEQ/L (22.0-26.0); ABG PARTIAL PRESSURE CO2 35.9 mmHg (35.0-45.0); ABG STANDARD HCO3 7.1 MEQ/L (22.0-26.0); ABG TOTAL CO2 8.5 MEQ/L (23.0-31.0)
[2017-04-12 05:49] LABS: ABG pH (ARTERIAL) 6.931 UNITS (7.350-7.450)
[2017-04-12] MEDS: HumaLOG INSULIN (NovoLOG) PER UNIT SC SCH ×4 (06:33→18:11)
--- NOTE | 2017-04-12 07:25 | REP ---
Clinical: Endotracheal tube placement. Comparison: 04/11/2017. Findings: Endotracheal tube is identified approximately 2.4 cm above the sukhjinder. Nasogastric tube courses below left hemidiaphragm. Right subclavian catheter with tip in the SVC. Left subclavian catheter with tip in the SVC. Mediastinum and cardiac silhouette are stable. Left lower lobe infiltrate and small effusion cannot be excluded. No obvious pneumothorax. Impression: Lines and tubes in satisfactory position. Cannot exclude left lower lobe atelectasis and small layering effusion. Signed by Sandip Garza MD 04/12/2017 07:16 A
[2017-04-12] MEDS ORDERED: NS 500 ML IV ONE ×2 (08:00→16:45)
[2017-04-12] MEDS ORDERED: SODIUM BICARBONATE 8.4% INJ 50 ML SYRINGE As Ordered ONE (08:09)
[2017-04-12] MEDS ORDERED: SODIUM BICARBONATE 8.4% INJ 50 ML SYRINGE IV STA (08:43)
[2017-04-12 08:46] LABS: CREATININE FOR GFR 2.32 MG/DL (0.55-1.02); GLOMERULAR FILTRATION RATE 22.2 (>45); PHOSPHORUS LEVEL 7.1 MG/DL (2.5-4.9)
[2017-04-12 08:47] LABS: ALBUMIN 1.7 GM/DL (3.2-5.2); ALBUMIN/GLOBULIN RATIO 0.68 (1.00-1.93); MAGNESIUM LEVEL 2.3 MG/DL (1.8-2.4); POTASSIUM SERUM 5.6 MEQ/L (3.5-5.1); TOTAL PROTEIN 4.2 GM/DL (6.4-8.2)
[2017-04-12 08:49] LABS: INR 4.23
[2017-04-12 08:59] LABS: CALCIUM LEVEL 5.9 MG/DL (8.8-10.2)
[2017-04-12] MEDS: CHLORHEXIDINE GLUCONATE 0.12 % 15ML UDC (PERIDEX ORAL RINSE) MT SCH (09:27)
[2017-04-12] MEDS: PANTOPRAZOLE 40MG INJ (PROTONIX) (C9113) IV SCH (09:27)
[2017-04-12] MEDS: TOBRAMYCIN 0.3% OPHTH SOLN 5 ML OD SCH ×3 (09:29→16:05)
[2017-04-12] MEDS: KETOROLAC 0.5% OPHTH SOLN OD SCH ×3 (09:29→16:05)
[2017-04-12] MEDS: NOREPINEPHRINE BITARTRATE 8 MG in D5W 500 ML IV SCH (09:32)
[2017-04-12] MEDS ORDERED: SODIUM CHLORIDE 0.9% 1000 ML IV ONE (10:30)
[2017-04-12] MEDS: D10W/0.45% SODIUM CHLORIDE 1,000 ML IV SCH (11:31)
--- NOTE | 2017-04-12 11:58 | RO ---
DATE OF PROCEDURE: 04/11/2017 PREPROCEDURE DIAGNOSIS: Apnea. POSTPROCEDURE DIAGNOSIS: Apnea. SURGEON: John York DO HUMAN RESOURCES RECRUITER: ANESTHESIA: PROCEDURE PERFORMED: Laryngoscopy with endotracheal tube intubation. DESCRIPTION OF PROCEDURE: The patient is seen in the intensive care unit, critically ill with ineffective respiratory efforts, essentially apneic. A GlideScope was immediately prepared. A #3 blade was inserted into the retropharynx. The epiglottis was visualized. Vocal cords were noted. An 8.5 endotracheal tube was placed through the vocal cords without difficulty to a distance of 23 cm. The balloon was inflated. CO2 was appreciated on the monitor and there were good bilateral breath sounds. The tube was secured in place, and a postprocedure chest x-ray confirms position. There were no complications.
--- NOTE | 2017-04-12 12:29 | IPNPDOC ---
Assessment/Plan Date Seen The patient was seen on 04/12/17. Patient Summary pt with sepsis, UTI, obstructive uropathy with left ureteral stone s/p pnc, oliguric renal failure. she is on pressors. she is on appropriate antibiotics based on culture. will need to cont supportive care. Plan/VTE VTE Prophylaxis Ordered?: Yes Plan/Urinary Catheter Reason for insertion/continuin: Critical Pt monitoring Subjective Review oF Systems Chief Complaint The patient is a 66-year-old female admitted with a reason for visit of Obstructive Uropathy,Sepsis. Events since Last Encounter pt remains intubated, sedated, on pressors and with oliguric renal failure. obstructing stone on the left s/p pnc. General: Reports: ROS Unobtainable Objective Physical Examination General Exam: Other (intubated and sedated) Vital Signs/I&O Vital Signs Date Time Temp Pulse Resp B/P (MAP) Pulse Ox O2 Delivery O2 Flow Rate FiO2 04/12/17 11:00 96.3 111 30 113/56 (75) 98 Ventilator 35 90/50 (63) 04/11/17 18:45 35.0 I&O- Last 24 Hours up to 6 AM 04/12/17 06:00 Intake Total 4438 ml Output Total 240 ml Balance 4198 ml Laboratory Data Labs 24H Laboratory Tests 2 04/11/17 12:38: Blood Gas Bicarbonate Standard 7.7L, Arterial Blood pH 6.963*L, Arterial Blood Partial Pressure CO2 33.8L, Arterial Blood Partial Pressure O2 157.4H, Arterial Blood Total CO2 8.5L, Arterial Blood HCO3 7.5L, Arterial Blood Base Excess - 23.3L, Arterial Blood Oxygen Saturation 98.5, Arterial Blood Gas Puncture Site LT BRACHIAL 04/11/17 15:15: Anion Gap 24H, Glomerular Filtration Rate 12.9L, Blood Urea Nitrogen 34H, Creatinine 3.72H, Sodium Level 136, Potassium Level 6.0H, Chloride Level 103, Carbon Dioxide Level 9L, Calcium Level 6.1L, Phosphorus Level 10.5H, Aspartate Amino Transf (AST/SGOT) 5163H, Alanine Aminotransferase (ALT/SGPT) 2516H, Alkaline Phosphatase 200H, Total Bilirubin 1.5H, Total Protein 4.3L, Albumin 1.6L, Whole Blood Ionized Calcium 3.3*L, Troponin I 2.06#*H, Albumin/Globulin Ratio 0.59L 04/11/17 16:01: Blood Gas Bicarbonate Standard 6.7L, Arterial Blood pH 6.925*L, Arterial Blood Partial Pressure CO2 31.1L, Arterial Blood Partial Pressure O2 109.3H, Arterial Blood Total CO2 7.3L, Arterial Blood HCO3 6.3L, Arterial Blood Base Excess - 25.2L, Arterial Blood Oxygen Saturation 96.5, Arterial Blood Gas Puncture Site RT RADIAL 04/11/17 19:09: Blood Gas Bicarbonate Standard 8.6L, Arterial Blood pH 6.975*L, Arterial Blood Partial Pressure CO2 38.2, Arterial Blood Partial Pressure O2 100.0, Arterial Blood Total CO2 9.9L, Arterial Blood HCO3 8.7L, Arterial Blood Base Excess - 22.3L, Arterial Blood Oxygen Saturation 95.5, Arterial Blood Gas Puncture Site RT RADIAL, Arterial Blood Gas Vent Mode vc, Arterial Blood Gas PEEP 5, Arterial Blood Gas FiO2 40, Oxygen Delivery Device MECHAN. VENT 04/11/17 19:50: Bedside Glucose (Misc Panel) 66L 04/11/17 20:15: Differential Slide Review Report, Differential Pathologist's Review COMPREHENSIVE REVIEW, Platelet Count, EDTA Free 34L, Peripheral Blood Smear Path Consult PERIPHERAL SMEAR, Prothrombin Time 51.7H, Prothromb Time International Ratio 5.76*H, Fibrinogen 457H, D-Dimer, Quantitative > 4000.0H, Anion Gap 19H, Glomerular Filtration Rate 19.1L, Blood Urea Nitrogen 27H, Creatinine 2.65H, Sodium Level 138, Potassium Level 5.2H, Chloride Level 107, Carbon Dioxide Level 12L, Calcium Level 6.5L, Whole Blood Ionized Calcium 4.1L, Phosphorus Level 7.5#H, Magnesium Level 2.3, Troponin I 2.24*H 04/11/17 21:02: Blood Gas Bicarbonate Standard 7.9L, Arterial Blood pH 6.971*L, Arterial Blood Partial Pressure CO2 33.7L, Arterial Blood Partial Pressure O2 111.8H, Arterial Blood Total CO2 8.6L, Arterial Blood HCO3 7.6L, Arterial Blood Base Excess - 23.2L, Arterial Blood Oxygen Saturation 96.9 04/11/17 22:10: 04/12/17 00:16: Bedside Glucose (Misc Panel) 159H 04/12/17 02:18: Anion Gap 23H, Glomerular Filtration Rate 22.4L, Blood Urea Nitrogen 23H, Creatinine 2.30H, Sodium Level 138, Potassium Level 5.2H, Chloride Level 104, Carbon Dioxide Level 11L, Calcium Level 5.0#*L, Whole Blood Ionized Calcium 2.9* L, Phosphorus Level 6.7H, Magnesium Level 1.8, Troponin I 2.14*H 04/12/17 04:36: Activated Partial Thromboplast Time 47.4H 04/12/17 05:36: Blood Gas Bicarbonate Standard 7.1L, Arterial Blood pH 6.931*L, Arterial Blood Partial Pressure CO2 35.9, Arterial Blood Partial Pressure O2 133.0H, Arterial Blood Total CO2 8.5L, Arterial Blood HCO3 7.4L, Arterial Blood Base Excess - 23.8L, Arterial Blood Oxygen Saturation 98.0 04/12/17 05:38: Bedside Glucose (Misc Panel) 200H 04/12/17 07:50: Anion Gap 25H, Glomerular Filtration Rate 22.2L, Lactic Acid Level 17.8*H, Blood Urea Nitrogen 23H, Creatinine 2.32H, Sodium Level 135L, Potassium Level 5.6H, Chloride Level 102, Carbon Dioxide Level 8L, Calcium Level 5.9#*L, Phosphorus Level 7.1H, Aspartate Amino Transf (AST/SGOT) 83082Q, Alanine Aminotransferase (ALT/SGPT) 3555H, Lactate Dehydrogenase 9619H, Total Creatine Kinase 2370#H, Alkaline Phosphatase 241H, Total Bilirubin 2.0H, Triglycerides Level 157H, Cholesterol Level 64, Total Protein 4.2L, Albumin 1.7L, Whole Blood Ionized Calcium 3.0*L, Magnesium Level 2.3, Troponin I 2.03*H, Albumin/Globulin Ratio 0.68L, Amylase Level 205H, Lipase 120 04/12/17 08:30: Prothrombin Time 40.7H, Prothromb Time International Ratio 4.23 04/12/17 11:33: Bedside Glucose (Misc Panel) 190H CBC/BMP Laboratory Tests 04/11/17 15:15 Red Blood Count 3.72 L, Mean Corpuscular Volume 100.1 H, Mean Corpuscular Hemoglobin 30.3, Mean Corpuscular Hemoglobin Concent 30.3 L, Red Cell Distribution Width 12.8, Calcium Level 6.1 L, Phosphorus Level 10.5 H, Aspartate Amino Transf (AST/SGOT) 5163 H, Alanine Aminotransferase (ALT/SGPT) 2516 H, Alkaline Phosphatase 200 H, Total Bilirubin 1.5 H, Total Protein 4.3 L, Albumin 1.6 L 04/11/17 20:15 Calcium Level 6.5 L 04/12/17 02:18 Calcium Level 5.0 #*L 04/12/17 04:36 Red Blood Count 3.15 L, Mean Corpuscular Volume 101.2 H, Mean Corpuscular Hemoglobin 30.3, Mean Corpuscular Hemoglobin Concent 29.9 L, Red Cell Distribution Width 12.9 04/12/17 07:50 Calcium Level 5.9 #*L, Phosphorus Level 7.1 H, Aspartate Amino Transf (AST/SGOT ) 51350 H, Alanine Aminotransferase (ALT/SGPT) 3555 H, Lactate Dehydrogenase 9619 H, Total Creatine Kinase 2370 #H, Alkaline Phosphatase 241 H, Total Bilirubin 2.0 H, Triglycerides Level 157 H, Cholesterol Level 64, Total Protein 4.2 L, Albumin 1.7 L FSBS Laboratory Tests Test 04/11/17 19:50 04/12/17 00:16 04/12/17 05:38 04/12/17 11:33 Range/Units Bedside Glucose (Misc Panel) 66 159 200 190 80-115 MG/DL Microbiology Microbiology 04/10/17 Blood Culture, Received Pending 04/10/17 Blood Culture - Final, Complete Raoultella Ornithinolytica 04/10/17 Influenza Virus Type A Antigen - Final, Complete 04/10/17 Influenza Virus Type B Antigen - Final, Complete 04/10/17 Urine Culture - Final, Complete Klebsiella Oxytoca IGNACIO QURESHI MD April 12, 2017 12:29
[2017-04-12] MEDS ORDERED: NOREPINEPHRINE BITARTRATE IV SCH (12:30)
[2017-04-12] MEDS ORDERED: D5W IV SCH (12:30)
[2017-04-12 13:24] LABS: ABG BASE EXCESS -19.7 (-2.0-2.0); ABG HCO3 8.5 MEQ/L (22.0-26.0); ABG PARTIAL PRESSURE O2 120.5 mmHg (75.0-100.0); ABG STANDARD HCO3 9.5 MEQ/L (22.0-26.0); ABG TOTAL CO2 9.3 MEQ/L (23.0-31.0)
--- NOTE | 2017-04-12 13:25 | IPN ---
DATE: 04/12/2017 Please see resident note dictated for today's date; this is an addendum to that note. The patient is seen and examined this morning, and the case discussed at length with Dr. Mckinley and Dr. York. From a respiratory perspective, the patient continues to be in respiratory failure. Dr. York's help has been greatly appreciated. The patient is not intubated, not requiring sedation. She has respiratory failure related to hypoperfusion. We were hyperventilating her in an effort to compensate for metabolic acidosis. From an infectious disease standpoint, the patient is on appropriate antibiotics with Zosyn. She is growing Klebsiella oxytoca in her urine. She did undergo urgent percutaneous nephrostomy tube placement by Dr. Almaguer on the left yesterday. From a cardiovascular perspective, the patient is in septic shock, fairly persistent. She has been requiring Levophed. Yesterday she briefly required vasopressin as well. She did have some troponinemia, likely related to demand ischemia from profound hypoperfusion and shock. She is undergoing multiorgan dysfunction. From a hematological perspective, the patient has thrombocytopenia, likely related to severe sepsis. I did have concern for DIC; however, fibrinogen is high. She did receive two units of fresh frozen plasma for an elevated international normalized ratio (INR). Her platelets are currently 20. Should she have any bleeding, would recommend platelet transfusion. She is unable to tolerate any deep vein thrombosis (DVT) prophylaxis. Peripheral smear is pending, as well as heparin-induced antibody. She is on sequentials and thromboembolism deterrents (TEDs) for mechanical deep vein thrombosis (DVT) prophylaxis. From a metabolic perspective, the patient has significant lactic acidosis related to shock and despite pressor support with titration for mean arterial pressures (MAPs) greater than 65, continuous renal replacement therapy (CRRT) was attempted for 12 hours overnight. However, her acidosis remains unchanged and significant. I spoke with Dr. York and Dr. Mckinley. Will attempt hemodialysis, pressor support. Although she is quite guarded, we will see if this is able to help improve her acidotic state somewhat. She has been receiving bicarbonate through the CRRT. She did receive an additional dose this morning. The patient is also in rhabdomyolysis, likely secondary to hypoperfusion and tissue breakdown. From an alimentary perspective, the patient has a shock liver, major hypoperfusion and significant sepsis. She is hyperkalemic associated with renal failure, likely prerenal azotemia. Will continue with fluids and pressor support. She is on gastrointestinal (GI) prophylaxis with IV Protonix. From a neurological perspective, the patient remains intubated, not requiring sedation. She responds to painful stimuli, and there have been episodes of her spontaneously opening her eyes. At the present time, her prognosis appears to be quite poor. I did have lengthy discussions with the patient's daughter, Rosina, yesterday, and I am awaiting family's arrival to the hospital today in order to discuss further with them. They are currently taking part in an [employer] parade. I have spoken with Dr. York who has agreed to take the patient on his service. KELLY
[2017-04-12 13:26] LABS: IONIZED CALCIUM 3.6 MG/DL (4.5-5.3)
[2017-04-12 13:27] LABS: ABG pH (ARTERIAL) 7.099 UNITS (7.350-7.450)
[2017-04-12] MEDS ORDERED: HEPARIN 1,000 UNITS/ML 10ML VIAL (FOR RADIOLOGY& DIALYSIS ONLY) XX ONE (13:30)
[2017-04-12 13:31] LABS: MEAN CORPUSCULAR HEMOGLOBIN 30.5 pg (27.0-33.0); MEAN CORPUSCULAR HGB CONC 30.7 g/dl (32.0-36.5); MEAN CORPUSCULAR VOLUME 99.6 fl (80.0-96.0); WHITE BLOOD COUNT 18.4 K/mm3 (4.0-10.0)
[2017-04-12 13:33] LABS: INR 4.8
[2017-04-12 13:49] LABS: CREATININE FOR GFR 1.96 MG/DL (0.55-1.02); POTASSIUM SERUM 4.8 MEQ/L (3.5-5.1)
[2017-04-12 13:50] LABS: PHOSPHORUS LEVEL 6.1 MG/DL (2.5-4.9)
[2017-04-12 14:05] LABS: CALCIUM LEVEL 5.9 MG/DL (8.8-10.2)
--- NOTE | 2017-04-12 14:22 | RO ---
DATE OF PROCEDURE: 04/11/2017 PREPROCEDURE DIAGNOSIS: Acute kidney injury. POSTPROCEDURE DIAGNOSIS: Acute kidney injury. PROCEDURE PERFORMED: Right subclavian dialysis catheter placement. SURGEON: John York DO PRODUCT EVANGELIST: ANESTHESIA: DESCRIPTION OF PROCEDURE: The patient was seen in the intensive care unit, intubated, mechanically ventilated, critically ill. The procedure was reviewed with the patient's daughter, as were all the risks and possible complications pertaining thereto, including, but not limited to bleeding, infection, medication reaction and lung collapse. Informed consent was obtained. The patient was placed in supine position. The skin overlying the right subclavian vein was prepped with Chloraprep and draped in sterile fashion. A #25-gauge needle was used to raise a skin wheal of 1% lidocaine. Thereafter, a #17-gauge introducer needle was placed in through the skin into the right subclavian vein, free return of venous blood was obtained. A vascular tip guidewire was advanced. A small incision made adjacent to the guidewire and a dialysis catheter placed over the guidewire. The guidewire was removed. Catheter was flushed and a sterile dressing was applied to. A postprocedure chest x-ray confirmed adequate placement. There were no complications.
--- NOTE | 2017-04-12 14:22 | RO ---
DATE OF PROCEDURE: 04/11/2017 PREPROCEDURE DIAGNOSIS: Hypotension. POSTPROCEDURE DIAGNOSIS: Hypotension. PROCEDURE: Right radial arterial line placement. SURGEON: John York DO HIGH SPEED PRINTER OPERATOR: ANESTHESIA: DESCRIPTION OF PROCEDURE: The patient was seen in the intensive care unit intubated, mechanically ventilated, critically ill. The procedure was reviewed with the patient's daughter, as were all the possible complications pertaining thereto. An informed consent was obtained. The right wrist was externally rotated. The skin overlying the right radial artery was prepped with Chloraprep and draped in a sterile fashion. A #25 gauge needle was used to raise a skin wheal of 1% lidocaine. Thereafter, a #20-gauge needle was placed through the skin and in the right radial artery. A vascular tip guidewire was advanced and a #21-gauge catheter placed over the guidewire to the hub. The catheter was sewn in place. A sterile dressing was applied. The catheter was connected to a pressure monitoring system and a good waveform was appreciated.
[2017-04-12] MEDS ORDERED: MORPHINE 10MG/0.5ML ORAL CONCENTRATE SOLUTION U/D SL PRN (20:45)
[2017-04-12] MEDS ORDERED: LORazepam 1 MG TAB PO PRN (20:45)
[2017-04-12] MEDS ORDERED: ATROPINE SULFATE 1% OP SOLN 2 ML BTL SL PRN (20:45)
[2017-04-12] MEDS ORDERED: SCOPOLAMINE 1.5 MG TRANSDERMAL TOP SCH (21:00)
--- NOTE | 2017-04-12 21:35 | IPN ---
DATE: 04/12/2017 SUBJECTIVE: The patient was seen and examined at the bedside today manager crisis in the intensive care unit (ICU). Last 24-hour events were noted. Last 24-hour labs were evaluated, and I was actually called for serial labs. The patient continuous venous hemodiafiltration. Patient was started on CVVHDF yesterday in the afternoon. We heard issues with the CVVHDF overnight with the filter clotting and low access pressures. In the morning, because of the low flows through the catheter and inefficient CVVHDF, it was stopped. Patient continues to be critically ill. She is in septic shock, required Levophed, ranging from 20 mcg to 30 mcg. She is severely acidotic at this time, and she continues to be in multiorgan failure. REVIEW OF SYSTEMS: Patient is unable to provide any reliable review of systems to me, because she is intubated and in septic shock. OBJECTIVE: Vital signs: When I saw the patient this morning, her vital signs included temperature 96.4 degrees Fahrenheit, blood pressure 106/47 in arterial line, pulse 107, respiratory rate of 30, saturating 96% on the vent with 35% FiO2. Intake and output: Patient had minimal urine output of around 21 mL since yesterday. Weight in bed scale is 66 kg. She is 650 positive since yesterday. PHYSICAL EXAMINATION: GENERAL: Patient is intubated. Not sedated. Currently on pressors. apparent distress. HEAD AND NECK: Right pupil is sluggish to light. Left pupils has a good response to light. Patient is intubated. Neck is supple. She has a right subclavian double-lumen catheter and left subclavian triple-lumen catheter. CARDIOVASCULAR: S1, S2, tachycardia. No murmur, rub, or gallop. RESPIRATORY: Transmitted breath sounds from the vent; otherwise no rales or rhonchi. ABDOMEN: Abdomen is soft, mildly distended. Old surgical scars. Liver is palpable. Otherwise no organomegaly. GENITOURINARY: Patient has a left-sided nephrostomy tube and Patterson catheter, and both of the tubes have minimal amount of urine in them. EXTREMITIES: Patient's extremities are mildly cyanotic. Otherwise, pulses are 2+. There is no edema. CENTRAL NERVOUS SYSTEM: Patient grimaces to pain, and she is intubated. LABORATORY REVIEW: CBC this morning showed WBC 17.4, hemoglobin 9.5, platelets are 21. ABG this morning showed pH 6.9, pCO2 of 35, pO2 of 133, bicarbonate is 7.4, oxygen saturation is 98%. BMP this morning showed sodium 135, potassium 5.6, chloride 102, bicarbonate is 8, BUN 23, creatinine is 2.3. Glucose 194, lactic acid 17.8, calcium was 5.9, phosphorus 7.1 AST [place] 35958, ALT was 3555, alkaline phosphatase was 241. LDH was 9619. Troponin was 2.03. Albumin 1.7. Microbiology: Blood culture is growing Raoultella ornithinolytica, and urine culture is growing Klebsiella oxytoca. Both of them are sensitive to Zosyn that patient is receiving. IMAGING: A repeat chest x-ray done today morning shows lines and tubes in satisfactory position and small left lower lobe atelectasis and small layering effusion. CURRENT MEDICATIONS: Patient's general medications are all reviewed by me. She continues to be on intravenous (IV) Levophed. She is on 10% dextrose, half-normal saline at 75 mL an hour. She is getting electrolytes as per CVVHD protocol. She has been requiring normal saline fluid boluses because of hypotension. She continues to be on IV Zosyn, which is a CVVHD dose. She got an amp of sodium bicarbonate this morning. Otherwise, there is no other change in the medications today as compared with yesterday. ASSESSMENT: A 66-year-old female admitted to intensive care unit (ICU) with septic shock, multiorgan failure, which includes shock liver, vent-dependent respiratory failure, acute anuric renal failure, along with severe metabolic acidosis, multiple electrolyte abnormalities, bacteremia, and urinary tract infection. Nephrology service following the patient for management of severe metabolic acidosis, acute renal failure, and renal replacement therapy. PLAN: 1. Septic shock secondary to bacteremia and urinary tract infection. Patient continues to require Levophed. Continue fluid boluses as needed. Try to remain a central venous pressure (CVP) of around 12 and a mean arterial pressure (MAP) of above 65. Continue the IV antibiotics. Both of the organisms in blood and urine are sensitive to Zosyn. 2. Acute anuric renal failure. Patient was on CVVHDF last night. We had issues with the catheter flow, CVVHDF has bee stopped. We shall try to do hemodialysis with an increased dose of Levophed today with the same catheter, and if the catheter gives us issue, she will get another catheter for hemodialysis. Once she has a new catheter, we shall restarted the CVVHDF. 3. Hyperkalemia. Hyperkalemia is stable at this time, which is secondary to severe metabolic acidosis and acute renal failure. We shall try to correct the potassium with hemodialysis. She will be dialyzed against a 2K bath. 4. Severe metabolic acidosis. It is secondary to acute renal failure and septic shock. Unfortunately, despite CVVHDF last night, her pH stayed around 6.9. We shall try to dialyze the patient with a bicarbonate of 35 on a regular dialysis machine and see if that helps, although I am skeptical about that, because patient is already receiving almost 70 mEq of bicarbonate an hour with the CVVHDF, which has not been able to correct patient's acidosis. It is a sign of severe shock and multiorgan failure. 5. Bacteremia and urinary tract infection. Both of the organisms mentioned above are sensitive to Zosyn. Continue Zosyn at this time. Dose is already adjusted according to patient's CVVHDF. I recommend giving the patient vancomycin as well for broad-spectrum coverage. 6. Left-sided obstructive uropathy, status post left-sided nephrostomy tube placement. Patient got the nephrostomy tube placed yesterday; however, patient has minimal urine output, both in the Patterson catheter and left-sided nephrostomy. She is in acute renal failure because of septic shock. 7. Hypocalcemia. Continue to repeat calcium according to CRRT protocol. 8. Shock liver. Patient's liver injury tests continue to get worse. Her INR is high. She was given 2 units of fresh frozen plasma (FFP) transfusion yesterday because of high INR. If patient stays hemodynamically stable, her liver function might recover over the next few days. 9. Vent-dependent respiratory failure. Management of the vent is as per pulmonary service. GOALS OF CARE: I extensively discussed patient's current medical status, including severe septic shock with multiorgan failure, which is not responding to CVVHD, with patient's daughter at the bedside. Patient has a very poor prognosis. Patient's daughter is going to discuss the further goals of care with her sisters and her family members, and she will decide about the further treatment plans within a few hours. For now, I will continue the aggressive management of this patient. Family has not decided to make the patient comfort measures or DO NOT RESUSCITATE at this time. Plan of care was discussed with the hospitalist, Dr. Lawson Rivera and with the critical care team, Dr. John York. I spent more than 45 minutes taking care of this patient and discussing the goals of care with the family in the ICU today.
--- NOTE | 2017-04-12 21:41 | CCN ---
DATE: 04/12/2017 CRITICAL CARE NOTE: The patient is seen in the intensive care unit. This is hospital day three, intensive care unit (ICU) day three. She is intubated and mechanically ventilated, stuporous, had been receiving continuous renal replacement therapy through the night with difficulty, cassettes requiring change three times in the night. She remains on Levophed at 15 mcg at this time. EXAMINATION: VITAL SIGNS: Temperature is 91.6, pulse rate is 91, respirations 30/30 delivered blood pressure 76/48. Intake and output for the past 24 hours 4962 in, 280out. GENERAL: At bedside she is ill appearing, stuporous. HEENT: Mucosa is dry. Pupils do respond to light. There is a number 8.5 endotracheal tube at 23 cm, and orogastric tube draining bilious secretions. NECK: Supple without meningismus. HEART: Sounds are regular. RESPIRATORY: Breath sounds are coarse and diminished with some expiratory sounds in the left base. No tactile fremitus. Chest moves symmetrically with ventilated efforts. There are no spontaneous breaths noted. ABDOMEN: Soft. No appreciable bowel sounds. Nephrostomy tube has bloody drainage. There is minimal dark urine in the Patterson catheter. EXTREMITIES: Show old ecchymotic lesions of the skin. Pulses are palpable in the extremities but diminished. DIAGNOSTIC STUDIES: A 2 a.m., the sodium is 138, potassium 5.2, chloride 104, CO2 11, BUN 23, creatinine 2.3, glucose 150. Lab has just returned with a sodium of 135, potassium 5.6, chloride 102, CO2 of 8, BUN 23, creatinine 3.32, glucose 194. Serum lactate 17.8, amylase 205, AST 10,317, ALT 3555, albumin 1.7, calcium 5. The INR is 5.7, PTT 47.4. White cell count is 17.4, hemoglobin 9.5, hematocrit 31.9, platelet count is 21,000. A peripheral smear is pending. Heparin antibody studies are pending. I have reviewed the chest x-ray image. The tubes and lines are in good position. There is some atelectasis in the left base. No new infiltrates. Formal report is pending. Infectious disease studies were reviewed. Blood cultures on admission showed gram-negative rods. Identification is pending. Urine culture grew Klebsiella oxytoca sensitive to piperacillin tazobactam. Influenza screen was negative. ASSESSMENT: 1. The primary problem requiring critical attention is severe sepsis with shock secondary to urinary infection with Klebsiella oxytoca - the infection was sensitive to piperacillin tazobactam. This is her third day of piperacillin tazobactam therapy. Her fluid volume has been augmented. Current central venous pressure (CVP) is 12. She is on pressors. Persistent elevation of lactate is a poor prognostic sign. The blood cultures have not been fully resulted as of yet. I suspect the bacteremia was Klebsiella as well. 2. Acute respiratory failure. The patient is on maximal ventilatory settings at this point. We have increased minute ventilation as able to compensate for the metabolic acidosis and are following blood gases. Repeat blood gas has been ordered. We will continue with pressure control and lung protective settings. 3. Acute kidney injury. The patient has had poor response to continuous renal replacement therapy through the night. I have discussed this with nephrology and they are changing to formal hemodialysis at this point in an effort to correct some of the electrolyte abnormalities. 4. 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 There is no active bleeding. Will continue following hemoglobin levels and platelet levels. 5. Encephalopathy. I suspect this is related to toxic metabolic factors. The patient has received little in the line of sedation. 6. Cardiac injury. Troponin was elevated likely has a secondary event. Most recent troponin has fallen some. This is unlikely to resolve given her renal insufficiency. 7. Deep venous thrombosis (DVT) prophylaxis is being addressed with sequential hose in light of her coagulopathy. 8. Ulcer prophylaxis is being addressed with Protonix. 9. Glycemic control is being addressed with fingerstick blood sugars and coverage. The case has been discussed with interventional radiology, hospitalist service, nephrology and the family. The patient's prognosis is very poor. One hour and 12 minutes were spent in the provision of bedside critical care and coordination, exclusive of procedure time.
--- NOTE | 2017-04-12 23:02 | IPN ---
DATE OF SERVICE: 04/12/2017 SUBJECTIVE: Ms. Islas is a 66-year-old female who was seen and examined at the bedside. Unfortunately, patient is not doing well. Yesterday, patient was intubated and on mechanical ventilator. Dr. York was consulted, who intubated the patient. Based on Dr. York's notes, he obtained an EKG; however, no ST segment elevation was noticed. This is possibly acute respiratory failure secondary to septic shock. Patient has been seen by nephrology. OBJECTIVE: VITAL SIGNS: Temperature 95.4, pulse 107, respiratory rate 30, blood pressure 72/45, pulse oximetry 95 on 35 liters FiO2 on ventilator. GENERAL APPEARANCE: Patient is unconscious. LUNGS: Patient has scattered rhonchi at the base of the lung. Good air movement. HEART: Tachycardia. Normal S1, S2. ABDOMEN: Soft, positive bowel sounds in all quadrants. No hepatosplenomegaly. EXTREMITIES: No lower extremity edema, +2 pulses in both lower extremities. Feet are warm. LABORATORY DATA: White blood cells 17.4, red blood cells 3.15, hemoglobin 9.5, hematocrit 31.9, MCV 101.2, MCH 30.3, MCHC 29.9, RDW 12.9, platelet count 21. Sodium 136, potassium 6, chloride 103, carbon dioxide 9, anion gap 24, BUN 34, creatinine 3.72, glomerular filtration rate 12.9, fasting glucose 40, calcium 6.1, whole blood ionized calcium 3.3, phosphorus 10.5, total bilirubin 1.5, AST 5163, ALT 2516, alkaline phosphatase 200, total protein I 2.06, total protein 4.3, albumin 1.6. ABG bicarbonate 107.1, ABG pH 6.931, ABG pCO2 35.9, ABG pO2 133, ABG HCO3 7.4, ABG total CO2 8.5, ABG oxygen saturation 98. ASSESSMENT AND PLAN: 1. Septic shock. This is possibly due to bacterial infection. Patient's blood culture came back positive for Raoultella ornithinolytica, which is also susceptible to Zosyn. We will continue patient on the current antibiotic. Also, patient is on Levophed for mean arterial pressure (MAP) above 65. Patient received intravenous (IV) bicarbonate today. 2. Shock liver. This is possibly secondary to hypotension secondary to sepsis. Patient's liver function tests elevating. Yesterday, patient's international normalized ratio (INR) was 5.76; however, today patient's INR has decreased to 4.23. At this time, no requirement for patient to receive fresh frozen plasma. 3. Acute renal function. This is possibly secondary to pre azotemia (hypotension secondary to septic shock) versus post azotemia (left-sided obstructive uropathy). At home, patient is on angiotensin-converting enzyme (PAMELLA) inhibitor; however, we have stopped this medication. Patient also has metabolic acidosis secondary to renal failure and septic shock. Dr. Mckinley has been consulted, who has started patient on dialysis catheter, as well as continuous venovenous hemodiafiltration (CVVHDF) for electrolyte abnormalities and will continue monitoring patient for any abnormal symptoms. 4. Gram-negative michele bacteremia. Patient is on Zosyn at this time. Dr. Mckinley has increased the dosage of Zosyn to 3.375 IV every 6 hours and started on CVVHDF. 5. Severe metabolic acidosis. This is secondary to lactic acidosis, septic shock and renal failure. Patient has received bicarbonate this morning. 6. Hyperkalemia. This is possibly secondary to acute renal failure versus metabolic acidosis. Patient is on continuous renal replacement therapy, which is managed by Dr. Mckinley. 7. Left-sided obstructive uropathy. Patient has a left nephrostomy tube, which is working. We will contact the urologist for further recommendations. 8. Hypocalcemia. Based on Dr. Mckinley, calcium will be managed according to continuous renal replacement therapy (CRRT) electrolyte protocol. 9. Vent-dependent respiratory failure. This is secondary to septic shock. This is managed by Dr. York. Appreciate Dr. York's recommendations. 10. Cholelithiasis. CT of abdomen and pelvis indicated distended gallbladder and multiple gallstones, but no CT evidence of acute cholecystitis; however, there was a concern regarding complications including choledocholithiasis. Therefore, we have consulted surgery for further evaluation and at this time we are waiting for further recommendations from surgery. 11. Thrombocytopenia. This is possibly secondary to septic shock. At this time, we will continue monitoring patient. 12. Deep venous thrombosis (DVT) prophylaxis. At this time, we will continue patient on thromboembolism deterrent stockings (TEDS) and sequentials. My preceptor for this patient encounter was Dr. Lawson Rivera. The preceptor was physically present in the building during the encounter and was fully available as needed. All aspects of the patient interview, examination, medical decision making process, and medical care plan development were reviewed and approved by the preceptor. The preceptor is aware and concurs with the plan as stated in the body of this note and will attest to such by his/her co-signature. KELLY
--- NOTE | 2017-04-13 06:47 | ED PDOC ---
Provider Note Was called to the bedside by RN when family arrived in order to extubate patient and place orders for BRUSH MAKER status. Patient was successfully extubated. BRUSH MAKER orders were placed. Orders were placed for patient to be transferred to the medical surgical unit. Patient at 8:46 PM. was confirmed at 8:57 PM. Body was released to the [facility]. Discussed all aspects of patient with attending. RAMY SHII April 13, 2017 06:47
--- NOTE | 2017-04-13 07:36 | RO ---
DATE OF PROCEDURE: 04/12/2017 PREPROCEDURE DIAGNOSES: Acute renal failure and severe metabolic acidosis. POSTPROCEDURE DIAGNOSES: Acute renal failure and severe metabolic acidosis. PROCEDURE: Placement of right femoral vein central venous catheter. SURGEON: Dr. Flavia Mckinley CLAY PIGEON SETTER: ANESTHESIA: DESCRIPTION OF PROCEDURE: A time-out was performed confirmed patient and location of the procedure. The patient was prepped and draped in the usual sterile fashion. A 14.5 [place] double lumen central venous catheter was placed in the right common femoral vein via Seldinger technique. Venous blood was aspirated from each port and line was flushed with sterile saline. It was sutured in place and covered with a dressing. COMPLICATIONS: None. ESTIMATED BLOOD LOSS: 5 mL. DISPOSITION: The patient tolerated the procedure well. Hemodialysis was initiated right after placement of dialysis catheter. Catheter to remain in the right groin at the end of dialysis session.
--- NOTE | 2017-04-13 07:41 | ECGEPIP ---
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
--- NOTE | 2017-04-13 14:10 | CR ---
DATE OF CONSULTATION: 04/11/2017 REASON FOR CONSULTATION: Septic shock with distended gallbladder and gallstones by imaging. HISTORY OF PRESENT ILLNESS: The patient is a 66-year-old woman who was admitted at [facility] on 04/10/2017 with lower abdominal and back pain. She reported that the pain had started the previous day. I note that the patient is currently intubated and on a ventilator and is not able to provide any history and so her history is taken from the dictated admission history and physical. She had become nauseated at home. She apparently had felt warm but did not take her temperature. She presented with a history also of having had some chills and sweats along with her pain. She was evaluated and found to have an elevated white blood cell count of 17,000 with significant left shift. Her creatinine was elevated to 2.5. A CT of the abdomen and pelvis showed left-sided obstructive uropathy with an 8 mm calculus obstructing the proximal left ureter. There was some inflammatory stranding involving the left upper retroperitoneal region. Gallbladder was noted to be distended with stones present but no CT evidence for acute cholecystitis. The patient was started on antibiotics. Apparently urology was consulted. She was to have some sort of surgical procedure to place a ureteral stent but apparently decompensated before this was undertaken. She instead was taken to interventional radiology where a percutaneous nephrostomy was placed on the left. She developed sepsis with shock and was placed in the intensive care unit where she is now on the ventilator and requiring pressors for support. I was asked to evaluate the patient regarding the possibility of an acute gallbladder process also contributing to her deterioration. MEDICATIONS: Her current medications are primarily directed toward her shock. These include a norepinephrine drip with Zosyn. She has orders for analgesics. She has very recently been started on continuous renal replacement therapy using continuous dialysis. ALLERGIES: She has allergies that are listed to ERYTHROMYCIN, IBUPROFEN, LISINOPRIL, NONSTEROIDAL ANTI-INFLAMMATORY DRUGS (NSAIDS), PSEUDOEPHEDRINE and SULFA ANTIBIOTICS. Her surgical history is significant for a hysterectomy. She has had a dilation and curettage (D and C) and a section as well. She has undergone appendectomy as well as hemorrhoidal surgery. Her medical history is significant for emphysema. She has a history of arthritis. She has chronic obstructive pulmonary disease but apparently is on oxygen around the clock. She has hypertension and migraine headaches. Review of systems is really not obtainable at this time. PHYSICAL EXAMINATION: Reveals a woman appearing her stated age, lying quietly on the intensive care unit bed. She has an endotracheal tube in place. She has a right radial arterial line. She has a dialysis catheter, which appears to be in the right subclavian. She has another central line, which appears to be in the left subclavian. She has bilateral breath sounds by auscultation. The heart sounds are regular. Her vital signs at this point show a blood pressure of approximately 100/60 with a pulse of about 80. Her abdomen is obese and mildly protuberant. She does seem to have a few bowel sounds present. She has a nephrostomy tube in the left flank region, which has only a small amount of bloody fluid in the bag. There is no definite tympany to percussion. It is impossible to assess tenderness accurately. There is no definite mass palpable within the abdomen, and there is no sign of hernia. Her laboratory studies most recently show a white count of 21,000 with a hemoglobin of 11, hematocrit of 37 and a platelet count of 56,000. Her chemistry profile shows a sodium of 136, potassium 6.0, chloride 103, CO2 of 9, BUN of 34, creatinine 3.72 and a glucose of 40. Phosphorus is 10.5, total bilirubin is 1.5 , AST is 5163, ALT is 2516 and I alkaline phosphatase is 200. The troponin is elevated at 2.06. Most recent lactic acid was 5.1 on the morning of 04/11/2017. She had imaging on the morning of 04/10/2017. This was a CT scan of the abdomen and pelvis. I reviewed the imaging personally as well as read the radiologist's report. She does have a distended gallbladder with what appeared to be some gallstones within the dependent portion of the gallbladder. The gallbladder wall is not thickened. A stone is seen in the region of the proximal left ureter with evidence for some hydronephrosis. There is some significant perirenal inflammatory change. As noted, the gallbladder wall was not thickened and there is no pericholecystic inflammatory change identified. IMPRESSION: 1. Septic shock secondary to renal sepsis from obstruction with a renal stone. 2. Respiratory failure secondary to #1. 3. Cholelithiasis, which I think is most likely asymptomatic at this time and unrelated to her current deterioration. RECOMMENDATIONS: At this point, though I cannot be absolutely certain that the gallbladder is not an additional source for sepsis, I think that the images clearly show primarily a renal inflammatory process, and this would be clearly consistent with her picture and clinical presentation as described in her history and physical. The obstruction of the left kidney has now been addressed with a percutaneous nephrostomy. Unfortunately, she is having hypotension and respiratory failure. I note that the changes in her blood test is consistent with acute kidney injury and a falling in her platelet count. She is clearly critically ill but, again, I do not believe that the gallbladder plays a role. I will be happy to follow along as we see if she will rally from this critical illness. KELLY
--- NOTE | 2017-04-13 21:15 | IPN ---
DATE: 04/11/2017 SUBJECTIVE: Ms. Islas is a 66-year-old female who was seen and examined at the bedside. Yesterday after patient being admitted, the patient received four liters of bolus of normal saline; however, the patient's blood pressure continued to be low. Therefore, the patient was started on Levophed with a mean arterial pressure (MAP) of 65. Dr. Melara was consulted; however, procedure for double-J stent placement was not performed due to patient's low blood pressure and unstable. Dr. Rivera discussed the case again with Dr. Melara, and decision was to put the percutaneous nephrostomy tube on the left. Due to hemodynamic instability of the patient, local anesthesia was performed. Dr. Almaguer was consulted and evaluated the patient, who agreed for inserting the percutaneous nephrostomy tube on the left. The patient has mild output from the nephrostomy tube possibly secondary of septic shock and acute renal failure. The patient also has a Patterson. Dr. Mckinley of nephrology was consulted for management of the renal. Was also consulted. LABORATORY DATA: White blood cells 17.6, red blood cells 4.10, hemoglobin 12.2, hematocrit 39.3, MCV 95.5, MCH 297, MCHC 31, RDW 13, platelet count 110. Neutrophils 83, band nephrolysis 11, lymphocytes 2, and monocytes 3, metamyelocytes 1. Sodium 135, potassium 5.2, chloride 104, carbon dioxide 17, anion gap 14, BUN 34, creatinine 3.26, glomerular filtration rate 15, fasting glucose 110, calcium 6, magnesium 1.6. Total bilirubin 1, AST 3186, ALT 1556, alkaline phosphatase 164, total protein 4.4, albumin 1.9. PHYSICAL EXAMINATION: VITAL SIGNS: Temperature 98.2, pulse 123, respiratory rate 24, blood pressure 94/62, pulse oximetry 93 on two liters nasal cannula. GENERAL APPEARANCE: The patient was lying in bed. The patient is not alert or oriented. However, the patient responds to vocal and pain stimuli. HEENT: Pupils equal and reactive to light. Oral mucosa is moist. HEART: Regular rate and rhythm. Normal S1, S2. RESPIRATORY: Clear breath sounds bilaterally. Good air movement. ABDOMEN: Soft, positive bowel sounds in all quadrants. No hepatosplenomegaly. EXTREMITIES: Plus two pulses in both lower extremities. No clubbing or cyanosis. Feet were cold. ASSESSMENT AND PLAN: 1. Septic shock. This is possibly secondary to urobacteremia (Klebsiella oxytoca). At this point, the patient is on fluid bolus, and patient is also on pressor and currently in the intensive care unit (ICU), and try to keep the mean arterial pressure (MAP) above 65. At this point, the patient is also on Zosyn. 2. Liver shock. The patient's liver function tests are extremely elevated. This is possibly secondary to hypotension and we will monitor prothrombin time (PT)/international normalized ratio (INR). Also, we will continue monitoring patient's liver function. 3. Acute renal failure, multifactorial, possibly pre-azotemia (due to hypotension secondary to shock), as well as urosepsis and post-azotemia (secondary to nephrolithiasis). At home, patient was on angiotension-converting enzyme (PAMELLA) inhibitor; however, it has been held. The patient has metabolic acidosis. Dr. Mckinley has been consulted. 4. Severe metabolic acidosis. This is secondary to lactic acidosis caused by septic shock and acute renal failure. Dr. Mckinley has been consulted. 5. Left-sided obstructive uropathy. CT of abdomen and pelvis indicated left proximal ureter obstruction secondary to a stone. At this time, the patient cannot undergo the procedure due to septic shock and being unstable. The patient has left-sided nephrostomy tube; however, left-sided nephrostomy tube output is minimal possibly secondary to acute renal failure and septic shock. 6. Hypocalcemia. The patient may require supplement. At this point, we are awaiting for further recommendations from Dr. Mckinley. 7. Deep venous thrombosis (DVT) prophylaxis. At this time, we will continue the patient on thromboembolism deterrent stockings (TEDs) and sequentials. The patient's platelet has decreased, possibly secondary to septic shock. Will continue to monitor patient for any abnormal symptoms. My preceptor for this patient encounter was Dr. Lawson Rivera. The preceptor was physically present in the building during the encounter and was fully available as needed. All aspects of the patient interview, examination, medical decision making process, and medical care plan development were reviewed and approved by the preceptor. The preceptor is aware and concurs with the plan as stated in the body of this note and will attest to such by his/her co-signature.
--- NOTE | 2017-04-14 06:46 | DSES ---
DATE OF ADMISSION: 04/10/2017 DATE OF : 04/12/2017 CAUSE OF : Left obstructing ureteral stone. SECONDARY CAUSE: Severe refractory septic shock and multiorgan dysfunction. ANAESTHETIC TECHNICIAN: Dr. Cedric Melara, urology. Dr. John York, critical care. Dr. Flavia Mckinley, nephrology. Dr. Lico Almaguer, interventional radiology. Dr. Paulino Pagan, general surgery. HOSPITAL COURSE: The patient is a 66-year-old female who was admitted through the emergency room with an obstructing left ureteral stone. She was admitted to the medical intensive care unit. She was found to be hypotensive. She initially responded to fluids, but quickly dropped her blood pressure. Dr. Pritchett was called originally to the bedside where she had a central venous catheter placed. She was stabilized overnight and went for percutaneous nephrostomy tube placement, early the next morning, just after 7:00 a.m. after I assumed care and coordinated the procedure with Dr. Almaguer and Dr. Melara. Following the procedure, the patient remained hypotensive and progressed to respiratory failure and severe lactic acidosis. She was intubated by Dr. York. Dr. Mckinley saw the patient and started the patient on continuous renal replacement therapy and despite best efforts she did not improve and she succumbed to her illness. The family was updated daily throughout hospitalization. On the evening of 04/12/2017, I did meet with the patient's daughter, brother and numerous other family members who were at bedside and they elected to make the patient comfort measures only ([employer] TE[employer]). The patient was terminally extubated. Medical Order for Life-Sustaining Treatment (MOLST) form was signed and completed in the chart. Greater than 1 hour was spent coordinating end of life care. For physical exam and problem list, please see daily progress note from today's date.
== END 2017-04-12 20:46 | disposition expired | DRG 853 ==
LOC: M ED 11:32 → M ED INP 14:49 → M ICU 16:19
PROVIDERS: ADMIT Internal Medicine Nephrology; ATTEND Internal Medicine Pulmonary Disease
PROC: 02HV33Z Insertion of Infusion Device into Superior Vena Cava, Percutaneous Approach (ICD-10-PCS; 2017-04-10)
PROC: 03HB3DZ Insertion of Intraluminal Device into Right Radial Artery, Percutaneous Approach (ICD-10-PCS; principal; 2017-04-11)
PROC: 0T9130Z Drainage of Left Kidney with Drainage Device, Percutaneous Approach (ICD-10-PCS; 2017-04-11)
PROC: 0BH17EZ Insertion of Endotracheal Airway into Trachea, Via Natural or Artificial Opening (ICD-10-PCS; 2017-04-11)
PROC: 02HV33Z Insertion of Infusion Device into Superior Vena Cava, Percutaneous Approach (ICD-10-PCS; 2017-04-11)
PROC: 0JH63XZ Insertion of Tunneled Vascular Access Device into Chest Subcutaneous Tissue and Fascia, Percutaneous Approach (ICD-10-PCS; 2017-04-11)
PROC: 30233K1 Transfusion of Nonautologous Frozen Plasma into Peripheral Vein, Percutaneous Approach (ICD-10-PCS; 2017-04-11)
PROC: 5A1945Z Respiratory Ventilation, 24-96 Consecutive Hours (ICD-10-PCS; 2017-04-11)
PROC: 06HY33Z Insertion of Infusion Device into Lower Vein, Percutaneous Approach (ICD-10-PCS; 2017-04-12)
PROC: 5A1D00Z (ICD-10-PCS; 2017-04-12)
DX: A41.9 Sepsis, unspecified organism (principal); K72.00 Acute and subacute hepatic failure without coma; R65.21 Severe sepsis with septic shock; G93.41 Metabolic encephalopathy; J96.00 Acute respiratory failure, unspecified whether with hypoxia or hypercapnia; N20.1 Calculus of ureter; N39.0 Urinary tract infection, site not specified; N17.9 Acute kidney failure, unspecified; E87.2 Acidosis; D68.9 Coagulation defect, unspecified; G43.909 Migraine, unspecified, not intractable, without status migrainosus; G89.29 Other chronic pain; I10 Essential (primary) hypertension; B96.89 Other specified bacterial agents as the cause of diseases classified elsewhere; N13.9 Obstructive and reflux uropathy, unspecified; E87.5 Hyperkalemia; K80.20 Calculus of gallbladder without cholecystitis without obstruction; J44.9 Chronic obstructive pulmonary disease, unspecified; Z88.2 Allergy status to sulfonamides; Z88.6 Allergy status to analgesic agent; Z88.8 Allergy status to other drugs, medicaments and biological substances; Z88.1 Allergy status to other antibiotic agents; Z99.81 Dependence on supplemental oxygen; Z90.711 Acquired absence of uterus with remaining cervical stump; Z79.52 Long term (current) use of systemic steroids; Z87.891 Personal history of nicotine dependence; Z82.49 Family history of ischemic heart disease and other diseases of the circulatory system; Z83.6 Family history of other diseases of the respiratory system